=== PATIENT | female | born 1960 | race Caucasian/White ===

== ENCOUNTER 2023-12-12 09:04 | Emergency (ER) | payer OTHER, SELFPAY ==
[2023-12-12 09:14] VITALS: BP 114/72
[2023-12-12 09:40] VITALS: BMI 24.0
[2023-12-12 09:54] LABS: COVID-19 Antigen Negative (Negative)
[2023-12-12 10:08] VITALS: BP 118/68
--- NOTE | 2023-12-12 10:11 | ED.GENMED ---
History of Present Illness
General
Chief Complaint: Cold/Flu/URI Symptoms
Source: patient and family
Time Seen by Provider: 12/12/23 09:21
History of Present Illness
History of Present Illness:
63-year-old female with past medical history of multiple myeloma, follows with oncology at [facility], presenting to the emergency department for evaluation of a cough that is been ongoing for 3 months, unchanged today but with no specific
etiology found. Closer to the onset of the symptoms family brought the patient to urgent care who performed an x-ray and it was thought patient may have a pneumonia so she was treated with antibiotics and a cough medication. Couple of days the
cough was better but returned. Patient has no other new symptoms today but family does endorse some fatigue, mild shortness of breath and some decreased p.o. intake. No known sick contacts, recent travel or recent antibiotics. Daughter states
that they were told by the oncology services that patient's multiple myeloma is 'treatable but not curable'
Past History
Past History
ED Past Medical History: Cancer and NIDDM
ED Past Surgical History: None
Social History
Tobacco: Non-smoker
Alcohol: None
Drug: None
Personal: Other (Legally )
Living: with family
Review of Systems
Review of Systems
All Other Systems: ROS reviewed and negative except as documented in HPI and ROS
Phy Exam
Physical Exam
Physical Exam:
GENERAL: Alert , in no apparent distress, mild dry cough
EYE: conjunctiva clear
NECK: Supple
ENT: o/p clr, mmm.
CARDIAC: Regular rate and rhythm
LUNGS: Clear breath sounds bilaterally, no acute respiratory distress, no wheezes/rales/rhonchi
NEUROLOGICAL: Alert and oriented
SKIN: Warm and dry, skin intact.
MUSCULOSKELETAL: well perfused.
PSYCH: Normal and appropriate interaction.
Scores
Heart Failure Risk
Heart Failure Risk Score: Not Applicable
Heart Score for Chest Pain Patients
STEMI patient?: Not applicable
Withdrawal Assessment of Alcohol
Withdrawal Assessment Completed?: Not applicable
Course
Orders/Labs/Results
Orders:
Orders
12/12/23 09:34
COVID-19 Antigen Urgent
Source: Nasal Swab
Influenza A+B Rapid Molecular Urgent
SHIRLEY Source: Nasal Swab
Specimen Description:
12/12/23 09:51
CT Chest Pe Study Urgent
Comment:
Reason For Exam: SOB, cough, cancer history
12/12/23 10:05
Complete Blood Count/With Diff Urgent
Comprehensive Metabolic Panel Urgent
NT-proBNP Urgent
Abnormal Lab Results
12/12/23
10:05
RBC 2.88 L 10^6/uL
(4.20-5.40)
Hgb 9.6 L g/dL
(12.0-16.0)
Hct 27.6 L %
(37.0-47.0)
MCH 33.3 H pg
(27.0-31.0)
MPV 10.5 H fL
(7.4-10.4)
Abs Immat Gran (auto) 0.2 H 10^3/uL
(0-0.05)
Absolute Lymphs (auto) 0.8 L 10^3/uL
(1.2-3.4)
Immature Gran % 1.9 H %
(0-0.5)
Neutrophils % 76.2 H %
(42.2-75.2)
Lymphocytes % 10.1 L %
(20.5-51.1)
Sodium 134 L mmol/L
(135-145)
BUN 18 H mg/dl
(7-17)
Glucose 120 H mg/dl
(70-99)
Total Protein 5.6 L g/dl
(6.3-8.2)
12/12/23 10:05
12/12/23 10:05
Vital Signs
Initial and Last Documented VS:
Initial Vital Signs
Temp Pulse Resp BP Pulse Ox
99.1 F 103 18 114/72 97
12/12/23 09:14 12/12/23 09:14 12/12/23 09:14 12/12/23 09:14 12/12/23 09:14
Last Documented Vital Signs
Temp Pulse Resp BP Pulse Ox
99.1 F 84 16 98/54 100
12/12/23 09:14 12/12/23 11:36 12/12/23 11:36 12/12/23 11:36 12/12/23 11:36
MDM/Problems Addressed
Differential Diagnosis Includes:
Pulmonary embolism, bronchitis, less concern for an acute pneumonia or infectious etiology given duration of symptoms
MDM/Problems Addressed:
63-year-old female presenting to the emergency department for evaluation of cough x 3 months, cough unchanged today but family noting patient has had some increased fatigue, shortness of breath and diminished p.o. intake over the last couple of
weeks. Patient had chest x-ray at the beginning of symptoms which urgent care said was thought to be a pneumonia. Slight relief with the antibiotic and cough medication but symptoms returned. Given patient's history of multiple myeloma with
worsening cough will obtain a CT scan to rule out PE. Labs ordered. Patient is otherwise hemodynamically stable and in no acute respiratory distress.
*Radiology
Radiology exam reviewed: radiology read reviewed
*Pulse Oximetry
Patient hypoxic: no
*Critical Care Note
Total Time (30-74mins, 75-104mins- exclusive of procedures): Not Applicable
Patient Management
Escalation/DeEscalation of care consider admission/obs:
Patient CT scan noted for no acute pulmonary embolism. Findings are most suggestive of a possible infectious versus inflammatory etiology. Incidental findings also discussed with patient and [id number]. Printout of this CAT scan report was
provided. Will provide patient with prescription for prednisone and an inhaler. stable for discharge home and aware of return precautions.
ED Attending Note
-
Portions of this chart may have been created with voice recognition software.� Occasional wrong word or��sound alike� substitutions may have occurred due to the inherent limitations of voice recognition software.
Discharge Plan
Departure
Patient Disposition: Home (Routine Discharge)
Date of Disposition: 12/12/23
Time of Disposition: 11:46
Patient with high blood pressure during this ER visit?: No
Discharge Problem:
Bronchitis
Instructions: Chronic Bronchitis (DC)
Prescriptions:
New
prednisone 10 mg Tablet
See Rx Instructions .ROUTE .COMPLEX Qty: 30 0RF
Rx Instructions:
Take By Mouth:
40 mg daily x3 days, 30 mg daily x3 days,
20 mg daily x3 days, 10 mg daily x3 days.
albuterol sulfate 90 mcg/actuation HFA aerosol inhaler
2 puff inhalation QID PRN (Reason: shortness of breath or wheezing) Qty: 6.7 0RF
Referrals:
Tyson Hardy DO [Family Provider] -
Interventions
Interventions:
*Risk Screen - Suicide Last Done: 12/12/23 09:38
*General Assessment Last Done: 12/12/23 09:38
*Neglect/Abuse Screening Last Done: 12/12/23 09:38
ED- Fall Risk Assessment Last Done: 12/12/23 09:38
*ED COVID-19 Vaccine History Last Done: 12/12/23 09:38
*Nursing Disposition Last Done: 12/12/23 12:16
ED- Pulmonary Assessment Last Done: 12/12/23 09:40
Discharge Date and Time
Discharge Date/Time: 12/12/23 12:17
Print Language: KYRGYZ
[2023-12-12 10:27] LABS: % Basophils 0.4 % (0-2); % Eosinophils 3.6 % (0-6); % Immature Granulocytes 1.9 % (0-0.5); % Lymphocytes 10.1 % (20.5-51.1); % Monocytes 7.8 % (1.7-9.3); % Neutrophils 76.2 % (42.2-75.2); Absolute Eosinophils 0.3 10^3/uL (0-0.7); Absolute Immature Granulocytes 0.2 10^3/uL (0-0.05); Absolute Lymphocytes 0.8 10^3/uL (1.2-3.4); Absolute Monocytes 0.6 10^3/uL (0.1-0.6); Absolute Neutrophils 6.3 10^3/uL (1.4-6.5); Hematocrit 27.6 % (37.0-47.0); Hemoglobin 9.6 g/dL (12.0-16.0); Mean Corp Hgb Conc. 34.8 g/dL (33.0-37.0); Mean Corpuscular Hgb 33.3 pg (27.0-31.0); Mean Corpuscular Volume 95.8 fL (81.0-99.0); Mean Platelet Volume 10.5 fL (7.4-10.4); Nucleated Red Blood Cells % 0 %; Platelet Count 205 10^3/uL (130-400); Red Blood Cell Count 2.88 10^6/uL (4.20-5.40); Red Cell Dist. Width 14.4 % (11.5-14.5); White Blood Cell Count 8.2 10^3/uL (4.8-10.8)
[2023-12-12 10:35] LABS: ALT (SGPT) 26 U/L (0-35); AST (SGOT) 32 U/L (14-36); Albumin 3.6 g/dl (3.5-5.0); Alkaline Phosphatase 66 U/L (38-126); Blood Urea Nitrogen 18 mg/dl (7-17); Calcium 8.4 mg/dl (8.4-10.2); Carbon Dioxide 23 mmol/L (22-30); Chloride 104 mmol/L (98-107); Estimated Creatinine Clearance 55 ml/min; Glucose 120 mg/dl (70-99); Potassium 4.1 mmol/L (3.5-5.1); Sodium 134 mmol/L (135-145); Total Bilirubin 0.8 mg/dl (0.2-1.3); Total Protein 5.6 g/dl (6.3-8.2); eGFR > 60.00
[2023-12-12 10:44] LABS: NT-proBNP 178 pg/ml
[2023-12-12 11:36] VITALS: BP 98/54
== END 2023-12-12 12:17 | disposition home or self-care (01) ==
LOC: EMR 09:04
PROVIDERS: Physician Assistant Medical; EMERGENCY PHYSICIAN Emergency Medicine; FAMILY PHYSICIAN Family Medicine Adult Medicine
DX: J20.9 Acute bronchitis, unspecified (principal); R53.83 Other fatigue; Z11.52 Encounter for screening for COVID-19; C90.00 Multiple myeloma not having achieved remission; E11.9 Type 2 diabetes mellitus without complications
CPT/HCPCS: 99285; 71275; 80053; 83880; 85025; 87502; 87811; Q9967

== ENCOUNTER 2023-12-31 04:31 | Inpatient (IN) | payer OTHER, SELFPAY ==
[2023-12-31] VITALS (14 sets, daily range): BP systolic 78–155; BP diastolic 47–88; PULSE 110–117; O2SAT 93; BMI 24.4; BMI 23.0
[2023-12-31 00:46] LABS: % Basophils 0.3 % (0-2); % Eosinophils 3.1 % (0-6); % Immature Granulocytes 0.6 % (0-0.5); % Lymphocytes 29.2 % (20.5-51.1); % Monocytes 6.8 % (1.7-9.3); Absolute Eosinophils 0.3 10^3/uL (0-0.7); Absolute Immature Granulocytes 0.1 10^3/uL (0-0.05); Absolute Monocytes 0.7 10^3/uL (0.1-0.6); Absolute Neutrophils 6.1 10^3/uL (1.4-6.5); Hematocrit 24.7 % (37.0-47.0); Hemoglobin 8.6 g/dL (12.0-16.0); Mean Corp Hgb Conc. 34.8 g/dL (33.0-37.0); Mean Corpuscular Hgb 32.1 pg (27.0-31.0); Mean Corpuscular Volume 92.2 fL (81.0-99.0); Mean Platelet Volume 10.8 fL (7.4-10.4); Nucleated Red Blood Cells % 0 %; Platelet Count 236 10^3/uL (130-400); Red Blood Cell Count 2.68 10^6/uL (4.20-5.40); Red Cell Dist. Width 14.9 % (11.5-14.5); White Blood Cell Count 10.1 10^3/uL (4.8-10.8)
[2023-12-31] MEDS: TYLENOL 1000 MG PO (01:13)
[2023-12-31] MEDS: NSS 1000 IV ×3 (01:15→23:23)
[2023-12-31 01:23] LABS: COVID-19 Antigen Negative (Negative)
[2023-12-31 01:30] LABS: Lactic Acid 0.9 mmol/L (0.7-2.0)
[2023-12-31 01:39] LABS: ALT (SGPT) 22 U/L (0-35); AST (SGOT) 25 U/L (14-36); Albumin 3.4 g/dl (3.5-5.0); Alkaline Phosphatase 53 U/L (38-126); Blood Urea Nitrogen 20 mg/dl (7-17); Calcium 8.6 mg/dl (8.4-10.2); Carbon Dioxide 19 mmol/L (22-30); Chloride 105 mmol/L (98-107); Glucose 123 mg/dl (70-99); Potassium 4.1 mmol/L (3.5-5.1); Sodium 135 mmol/L (135-145); Total Protein 5.3 g/dl (6.3-8.2); eGFR > 60.00
--- NOTE | 2023-12-31 02:18 | ED.GENMED ---
History of Present Illness
General
Chief Complaint: Cough
Source: patient and family
Exam Limitations: none
Time Seen by Provider: 12/31/23 00:10
History of Present Illness
History of Present Illness:
63-year-old female presents with persistent cough. Tonight son states that she went to go to bathroom but could not stop coughing. She has a history of stem cell transplant. No hemoptysis. Cough has been mostly dry but persistent. She was
treated with some medications few weeks ago but cough has persisted. Arrives with a fever. At home felt chilled but did not know she had a fever.
Past History
Past History
ED Past Medical History: Cancer, NIDDM and Other (Multiple myeloma)
ED Past Surgical History: None
Social History
Tobacco: Non-smoker
Alcohol: None
Drug: None
Personal: Other (Legally )
Living: with family
Phy Exam
Physical Exam
Physical Exam:
CONSTITUTIONAL Patient alert and oriented to person, place and time. Well-appearing. Vital signs reviewed.
HEAD atraumatic, normocephalic.
EYES eyelids normal to inspection, Extraocular muscles intact, Conjunctiva normal, Sclera normal.
NECK normal range of motion, Trachea midline, no jugular venous distention.
RESPIRATORY CHEST No respiratory distress noted, Chest expansion equal, few scattered rhonchi
CARDIOVASCULAR regular and tachycardic, Heart sounds normal.
ABDOMEN abdomen nontender, Bowel sounds normal. No distention.
BACK normal inspection, no obvious deformities
UPPER EXTREMITY range of motion normal, Motor strength normal, no cyanosis, no edema.
LOWER EXTREMITY range of motion normal, Motor strength normal, no cyanosis, no edema.
NEURO Speech normal, No focal motor deficits, Emerson coma scale 15, Memory normal, Cranial Nerves intact to screening exam.
SKIN skin warm, dry, and normal in color.
PSYCHIATRIC patient oriented to person place and time, Normal affect.
Course
Orders/Labs/Results
Orders:
Orders
12/31/23 00:27
Complete Blood Count/With Diff Urgent
12/31/23 00:38
CR Chest - 2 Views Urgent
Comment:
Reason For Exam: cough, fever
12/31/23 00:55
COVID-19 Antigen Urgent
Source: Nasal Swab
Comprehensive Metabolic Panel Urgent
Comment: REDRAW
Lactic Acid Q4H
Comment: CANCEL 2nd LACTIC ACID IF 1st LACTIC ACID IS LESS THAN 2
Blood Culture Urgent
SHIRLEY Source: Blood/Venous
Specimen Description:
12/31/23 01:12
Acetaminophen [Tylenol] 1,000 mg .ROUTE .STK-MED ONE
12/31/23 01:13
Acetaminophen [Tylenol] 1,000 mg PO NOW STA
12/31/23 01:14
0.9% Sodium Chloride 1000 ml [Nss] 1,000 ml IV BOLUS
12/31/23 02:10
Add On - Microbiology Urgent
Tests Added?: Mycoplasma IgG and IgM
12/31/23 02:14
Bordetella Pertussis IgA,G,M [S] Urgent
12/31/23 02:16
Azithromycin 500 mg/250 ml [Zithromax Infusion] 500 mg in 250 ml IV NOW
CefTRIAXone [Rocephin] 1,000 mg IV NOW STA
Abnormal Lab Results
12/31/23 12/31/23
00:27 00:55
RBC 2.68 L 10^6/uL
(4.20-5.40)
Hgb 8.6 L g/dL
(12.0-16.0)
Hct 24.7 L %
(37.0-47.0)
MCH 32.1 H pg
(27.0-31.0)
RDW 14.9 H %
(11.5-14.5)
MPV 10.8 H fL
(7.4-10.4)
Abs Immat Gran (auto) 0.1 H 10^3/uL
(0-0.05)
Absolute Monos (auto) 0.7 H 10^3/uL
(0.1-0.6)
Immature Gran % 0.6 H %
(0-0.5)
Carbon Dioxide 19 L mmol/L
(22-30)
BUN 20 H mg/dl
(7-17)
Glucose 123 H mg/dl
(70-99)
Total Protein 5.3 L g/dl
(6.3-8.2)
Albumin 3.4 L g/dl
(3.5-5.0)
12/31/23 00:27
12/31/23 00:55
Vital Signs
Initial and Last Documented VS:
Initial Vital Signs
Temp Pulse Resp BP Pulse Ox
102.4 F H 128 19 128/78 91
12/31/23 00:00 12/31/23 00:00 12/31/23 00:00 12/31/23 00:00 12/31/23 00:00
Last Documented Vital Signs
Temp Pulse Resp BP Pulse Ox
102.4 F H 102 21 104/67 93
12/31/23 00:00 12/31/23 01:45 12/31/23 01:45 12/31/23 01:08 12/31/23 01:45
MDM/Problems Addressed
MDM/Problems Addressed:
Interstitial pneumonia, fever, hypoxia, sepsis
*Radiology
Radiology exam reviewed: preliminary read by ED provider (Interstitial and nodular infiltrates)
*Pulse Oximetry
Patient hypoxic: no
*Sheriff Interpretation
Rate: tachycardiac
Interpretation: abnormal
Rhythm: sinus
*Critical Care Note
Total Time (30-74mins, 75-104mins- exclusive of procedures): Not Applicable
Data Reviewed
Review of Other/Old Records Reveals: Testing (Previous CT reviewed)
Source: patient and family
Further Testing Considered But Not Given:
Consider CTA but patient recently had a CTA that was negative for PE
Patient Management
Discussion with other providers: Hospitalist
Escalation/DeEscalation of care consider admission/obs:
63-year-old female with history of stem cell transplant presents with persistent cough. Chest x-ray does reveal interstitial and nodular infiltrates. Now she has a fever. Question mycoplasma, pertussis or other infiltrative process. Cover with
antibiotics and in light of mild hypoxia admit
ED Attending Note
-
Portions of this chart may have been created with voice recognition software.� Occasional wrong word or��sound alike� substitutions may have occurred due to the inherent limitations of voice recognition software.
Discharge Plan
Departure
Patient Disposition: Admit
Date of Disposition: 12/31/23
Time of Disposition: 02:22
Admit to: Telemetry
Presentation/result/management discussed w/ accepting MD/DO: Hospitalist
Discharge Problem:
Acute interstitial pneumonia, Hypoxia
Prescriptions:
No Action
prednisone 10 mg Tablet
See Rx Instructions .ROUTE .COMPLEX Qty: 30 0RF
Rx Instructions:
Take By Mouth:
40 mg daily x3 days, 30 mg daily x3 days,
20 mg daily x3 days, 10 mg daily x3 days.
albuterol sulfate 90 mcg/actuation HFA aerosol inhaler
2 puff inhalation QID PRN (Reason: shortness of breath or wheezing) Qty: 6.7 0RF
Referrals:
Tyson Hardy DO [Family Provider] -
Interventions
Interventions:
*Risk Screen - Suicide Last Done: 12/31/23 00:00
*General Assessment Last Done: 12/31/23 00:00
*Neglect/Abuse Screening Last Done: 12/31/23 00:00
ED- Fall Risk Assessment Last Done: 12/31/23 02:08
*ED COVID-19 Vaccine History Last Done: 12/31/23 00:00
ED- Pulmonary Assessment Last Done: 12/31/23 00:41
Discharge Date and Time
Print Language: GREENLANDIC
[2023-12-31] MEDS: ROCEPHIN 1000 MG IV (02:23)
[2023-12-31] MEDS: ZITHROMAX INFUSION 250 IV (02:25)
--- NOTE | 2023-12-31 04:06 | HPS.HSE ---
Family Physician
-
Family Physician: Tyson Hardy
Chief Complaint
-
Cough / Fever
History of Present Illness
Patient is a 63y F with PMH significant for multiple myeloma who presents to ED complaining of cough and fever. History obtained from patient and her son at the beside. Patient was diagnosed with multiple myeloma within the past year. In
May 2023 she underwent autologous stem cell transplant at [facility]. She is currently maintained on prophylactic antivirals and receives a subcutaneous injection every month - though they cannot recall the name of this.
Patient has been having hacking paroxysms of cough for the past 2-4 months. She notes that cough is largely non-productive. No associated dyspnea, sore throat, fevers / chills, etc.
She was initially seen by her PCP and prescribed cough medications without relief.
She was seen at an Urgent Care and prescribed a course of abx without relief.
She was seen here in the ED on 12/[address] suggested infectious v inflammatory bronchiolitis. She was prescribed a prednisone taper which was minimally / briefly helpful.
For the past 2-3 days, patient has been complaining of chills / feeling cold at home. This evening, she had a particularly harsh paroxysm of cough which prompted family to bring her to the ED for evaluation.
She was noted to have fever here to 102.4.
Patient has had poor appetite and has been sleeping very poorly - largely due to nighttime coughing.
Medical History
Past Medical History
Past Medical History: Reports Other
Additional Past Medical History:
Multiple Myeloma
Dyslipidemia
Hearing Loss
Past Surgical History: Reports Other
Additional Past Surgical History:
Bilateral Ear Surgeries
Social History
Tobacco: Non-smoker
Alcohol: None
Drug: None
Family History
Family History: Not pertinent
Allergies / Home Medications
Allergies reflects when Allergies were last updated in [employer].
Home Medications with original date entered in [employer]
Allergy/Medication List:
Allergies
Allergy/AdvReac Type Severity Reaction Status Date / Time
No Known Allergies Allergy Unverified 12/31/23 00:00
Home Medications
acyclovir 400 mg tablet 400 mg PO BID 12/31/23
entecavir 0.5 mg tablet 0.5 mg PO DAILY 12/31/23
rosuvastatin 10 mg tablet 10 mg PO DAILY 12/31/23
ruxolitinib 10 mg tablet (Jakafi) 10 mg PO BID 12/31/23
Review of Systems
-
History Source: Patient and Family
A 12 point ROS was completed and negative except as noted: Yes
Constitutional: Reports Fever, Fatigue and Chills
EENT: Denies Sore Throat
Respiratory: Reports Cough; Denies Hemoptysis or Trouble Breathing
Cardiac: Denies Chest Pain, Diaphoresis or Palpitations
Abdomen/GI: Denies Abdominal Pain, Nausea, Vomiting or Diarrhea
: Denies Dysuria, Frequency or Flank Pain
Musculoskeletal: Denies Joint Pain or Edema
Neurological: Denies Dizzy or Headache
Psych: Denies Depression or Anxiety
Physical Exam
Vital Signs
Vital Signs
Temp Pulse Resp BP Pulse Ox
98.4 F 94 19 100/62 98
12/31/23 02:39 12/31/23 02:30 12/31/23 02:30 12/31/23 02:06 12/31/23 02:30
Physical Exam
General: Other (63y F in no acute distress.)
HEENT: Moist mucous membranes and PERRLA
Respiratory: Other (Very few / fine bibasilar rales. No wheezing / rhonchi. No cough during my exam.)
Cardiac: S1/S2 and Regular Rhythm; No Murmur
GI: Soft, Non Tender, Non Distended and Normal Bowel Sounds
Musculoskeletal: No Clubbing, No Cyanosis and No Edema
Neuro: AO x 3 and Nonfocal/grossly intact
Laboratory Results
-
12/31/23 00:27
12/31/23 00:55
Laboratory Results
Lactic Acid Cancelled 12/31/23 04:45
Total Bilirubin 1.0 mg/dl (0.2-1.3) 12/31/23 00:55
AST 25 U/L (14-36) 12/31/23 00:55
ALT 22 U/L (0-35) 12/31/23 00:55
Alkaline Phosphatase 53 U/L (38-126) 12/31/23 00:55
Impression/Plan
-
A/P: Patient is a 63y F with PMH significant for multiple myeloma s/p stem cell transplant who presents to ED for cough and is noted to have fever.
Bronchiolitis / Atypical Pneumonia
Immunocompromised State
- Admit for further evaluation and treatment.
- COVID negative in the ED.
- IV abx with ceftriaxone / azithromycin for now.
- Follow up culture data and adjust regimen as needed.
- ID evaluation for additional recommendations.
- Follow fever curve. Follow for any new / worsening symptoms.
Multiple Myeloma
Anemia secondary to the above
- Stable. s/p stem cell transplant in May at [facility].
- Continue current antiviral prophylaxis regimen.
- Follow cell counts for any changes.
- Will taper Jakafi dose to 5mg BID for now given fever / infection.
- Son states that they has intended / planned to begin tapering this [facility] in any event.
DVT Prophylaxis: Lovenox
Code Status: Full
--- NOTE | 2023-12-31 06:25 | PTCARENOTE ---
Received patient from ER. stable vitals . 94% on RA. c/o frequent dry non productive cough, waiting for pharmacy to verify meds. POC reviewed with patient.
[2023-12-31 07:09] LABS: Hematocrit 22.3 % (37.0-47.0); Hemoglobin 7.5 g/dL (12.0-16.0); Mean Corp Hgb Conc. 33.6 g/dL (33.0-37.0); Mean Corpuscular Hgb 31.3 pg (27.0-31.0); Mean Corpuscular Volume 92.9 fL (81.0-99.0); Red Cell Dist. Width 14.6 % (11.5-14.5); White Blood Cell Count 5.8 10^3/uL (4.8-10.8)
[2023-12-31 07:48] LABS: Mean Platelet Volume 10.2 fL (7.4-10.4); Platelet Count 176 10^3/uL (130-400)
[2023-12-31 07:50] LABS: Hepatitis C Antibody Negative (Negative)
[2023-12-31 07:53] LABS: ALT (SGPT) 19 U/L (0-35); AST (SGOT) 21 U/L (14-36); Alkaline Phosphatase 46 U/L (38-126); Blood Urea Nitrogen 16 mg/dl (7-17); Carbon Dioxide 17 mmol/L (22-30); Chloride 111 mmol/L (98-107); Direct Bilirubin 0.2 mg/dl (0.0-0.4); Estimated Creatinine Clearance 58 ml/min; Glucose 121 mg/dl (70-99); Sodium 141 mmol/L (135-145); Total Bilirubin 0.6 mg/dl (0.2-1.3); Total Protein 4.9 g/dl (6.3-8.2); eGFR > 60.00
--- NOTE | 2023-12-31 08:30 | PTOTSP ---
Speech Language Pathology
Pt seen for clinical bedside swallow evaluation. Pt denied any difficulty chewing or swallowing. P.O. trials of puree, regular solids, and thin liquids provided. Adequate mastication, bolus formation, and A-P transit noted with no oral residue.
No overt signs of aspiration.
Recommend:
(1) Regular solids/thin liquids
(2) General aspiration precautions
(3) Meds as tolerated
(4) CONSERVATION COORDINATOR to sign off. Please reconsult as indicated
[2023-12-31] MEDS: ZOVIRAX 400 MG PO ×2 (09:12→21:01)
[2023-12-31] MEDS: CRESTOR 10 MG PO (09:13)
[2023-12-31] MEDS: PROTONIX 40 MG PO (09:14)
[2023-12-31] MEDS: MUCINEX 600 MG PO ×2 (09:14→21:01)
[2023-12-31] MEDS: TYLENOL 650 MG PO ×3 (11:08→21:00)
[2023-12-31] MEDS: NON-FORMULARY ITEM 1 UNIT PO (12:00)
[2023-12-31] MEDS: NON-FORMULARY ITEM 2 MG PO (12:01)
--- NOTE | 2023-12-31 12:57 | CON.ID ---
Addendum entered and electronically signed by Nereida Alvarenga MD 12/31/23 14:29:
I personally performed a history and physical exam of the patient and discussed management with the resident. I reviewed the resident's note and agree with the documented findings and plan of care HPI/CC.
History obtained from the patient's son and review of outside [facility] records.� 63-year-old female originally from [facility] and has been to the [facility] since 2004 with history of multiple myeloma status post autologous stem cell transplant at
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
biopsies showed multinucleated cells without viral inclusion bodies.� During biopsy showed perivascular and interstitial mixed inflammatory cell infiltrate with many eosinophils.� Dermatology favored twigk-bgjfio-wgbn disease.� She was seen by
infectious disease who treated her with IV ganciclovir to August 20, 2023 and transition to letromivir until she was off high-dose steroid progressed versus host disease.� Patient also was placed on Jakafi for the GVHD with good response. �Patient
was on Bactrim Fridays for PJP prophylaxis.� However in the end of July, dermatology requested DC the Bactrim as it may have contributed to the rash.� Patient was then placed on atovaquone.
In the beginning of October, patient developed dry cough.� On November 01, respiratory viral panel was positive for rhinovirus.� Her cough was persistent.� November 18 chest x-ray showed lateral right middle lobe opacity.� She was placed on doxycycline for
sinusitis.� Patient without improvement.� She has received several courses of antibiotics and still with persistent dry cough.� Cough is nonproductive.� No shortness of breath.� Cough is intermittent lasting about 1 hour.� She presented to ER on
December 11.� CAT scan showed no PE, +scattered tiny bilateral subpleural tree-in-bud nodules throughout all lobes most prominent in the upper lobes bilaterally suggestive of low-grade infectious/inflammatory bronchiolitis throughout the lungs
bilaterally. �She was discharged on prednisone without improvement.� For the past 4 days patient has been subjective fever and chills.� She came to the hospital yesterday.� Temperature was 102.4.� Checks x-ray shows interstitial and nodular
opacities bilaterally. No pets. No travel. 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 No gardening. She stays home most of the time since transplant. She has young grandchildren without recent illness. No sweats. Has
chronic low back pain. No rash. No N/V/diarrhea. She continues to take acyclovir. She is currently not on Atovaquone. She and her son is unsure whether or not she should continue.
Exam:
No frontal or maxillary sinus tenderness. Oral: benign, no ulcers/lesions. Chest: clear. Cardiac RRR S1S2, Abd nontender, Extemity no edema
No spinal tenderness. No joint effusions/erythema. No rash.
A/P:
# Dry cough x 2 months. CXR: interstitial and nodular opacities. 12/12/[address] also abnormal.
# Fever
# Multiple myeloma s/p autologous stem cell transplant 05/2023 on monthly daratumumab. Acyclovir ppx
# Auto-GVHD, hx Rash/pancolitis/fever/eosinophilia s/p skin bx, colon bx. �on Jakafi. Has tapered off steroid.
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
# HbsAb + HbsAg - HbcAb +. On entecavir
- Differential dx is broad in immunocompromised host.
To consider CMV pneumonitis, Pneumocystis jiroveci (not on prophylaxis), Nocardia, fungal (less likely), auto-GVHD involving lungs, bronchiolitis obliterans.
- Recommend chest CT
- Check plasma CMV viral load
- Check 1,3 beta-glucan assay (not sensitive or specific test for PJP)
- Pulmonary consult. To consider bronchoscopy for diagnosis.
-Follow blood cx's
-DC ceftriaxone/azithromycin.
-Broaden abx to empiric cefepime.
-Continue Entecavir to prevent HBV reactivation.
Continue acyclovir prophylaxis.
-Consider transfer to [facility].
Case discussed with Dr. Leonel Wadsworth.
Original Note:
Consultation
-
Date/Time Consultation Requested: 12-31-23
Date/Time Consultation Performed: 12-31-23
Requesting Provider: Dr. Faulkner
Performing Provider: Dr. Alvarenga
Reason for Consultation: fever and suspected pneumonia
Chief Complaint / Past History
Chief Complaint
cough and fever
History of Present Illness
Sherrie Briseno, age 63, came to the emergency on 12-31-23 with 2-3 months of dry cough, fevers and chills. She underwent an autologous stem cell transplant in April 2023 for Multiple Myeloma. Had multiple admissions subsequently with diarrheal
symptoms. According to her son, she 'was treated for CMV and/or GVHD'. She is on acyclovir and entecavir prophylaxis. In the past, she was subsequently on atovaquone as well, which was stopped possibly in October. She is also taking ruxolitinib, and
gets once a month shot for her MM (they are not sure about the name of the medication).
She developed a cough 2-3 months ago which has continued to progress. It is dry and not associated with any other symptoms besides intermittent chills and fevers. Her coughing spells can last for 20-30 minutes at times, and are always
non-productive. No difficulty breathing of hypoxia. She has taken cough medications, an outpatient course of antibiotics, steroid taper from the ED, but has failed to respond and continues to get worse. She moved from [facility] to the in 2004, and
has no recent travels. She has not had sick contacts known to her. Her son does report that 'she had a viral infection after the transplant which usually happens to kids'.
Past History
Past Medical History: Other (Multiple myeloma, GVHD, Dyslipidemia, Hearing Loss)
Past Surgical History: None
Allergy History:
No Known Allergies Allergy (Unverified 12/31/23 00:00)
Medications Reviewed: Yes
Social History
Tobacco: Non-Smoker
Alcohol: None
Drug: None
Living: With Family
Employment: Not Employed
Family History
Family History: Not Pertinent
Review of Systems
Review of Systems
General: Fever and Chills
HEENT: Negative Lymphadenopathy
Cardiovascular: Negative Chest Pain or Palpitations
Respiratory: Cough; Negative Dyspnea
Gasteroenterology: Negative Weight Loss, Nausea or Vomiting
Genital / Urological: Negative Dysuria
Endocrine: Negative Weakness or Fatigue
Skin / Hair / Nails: Negative Rash
Neurological: Negative Headache
Vital Signs
Temp Pulse Resp BP Pulse Ox
97.5 F 76 17 106/58 98
12/31/23 07:52 12/31/23 07:52 12/31/23 07:52 12/31/23 07:52 12/31/23 11:10
Physical Exam
Physical Exam
Constitutional: No Acute Distress
Head: Normocephalic
Pharynx: Benign
Cardiovascular: Regular Rate and S1/S2
Pulmonary: Clear and Rales (bilateral; mild; diffuse)
Gastrointestinal: Soft, Non Tender and Non Distended
Extremities: Negative Edema, Clubbing or Cyanosis
Skin: Negative Warm or Dry
Neurological: Awake, Alert, Oriented and No Motor Deficits
Psychological: Calm
Lab / Diagnostic Study Results
12/31/23 06:24
12/31/23 06:24
Abs Immat Gran (auto) 0.1 10^3/uL (0-0.05) H 12/31/23 00:27
Absolute Neuts (auto) 6.1 10^3/uL (1.4-6.5) 12/31/23 00:27
Absolute Lymphs (auto) 3.0 10^3/uL (1.2-3.4) 12/31/23 00:27
Absolute Monos (auto) 0.7 10^3/uL (0.1-0.6) H 12/31/23 00:27
Absolute Basos (auto) 0.0 10^3/uL (0-0.2) 12/31/23 00:27
Immature Gran % 0.6 % (0-0.5) H 12/31/23 00:27
Neutrophils % 60.0 % (42.2-75.2) 12/31/23 00:27
Lymphocytes % 29.2 % (20.5-51.1) 12/31/23 00:27
Monocytes % 6.8 % (1.7-9.3) 12/31/23 00:27
Eosinophils % 3.1 % (0-6) 12/31/23 00:27
Basophils % 0.3 % (0-2) 12/31/23 00:27
Lactic Acid Cancelled 12/31/23 04:45
Microbiology Results
Micro:
12/31/23 00:55 Blood Culture - Pending
Blood/Venous
Assessment / Plan
Infectious vs. interstitial pneumonia
Immunocompromised state
GVHD
History of CMV
- Chronic and progressive; failed to respond to antibiotics outpatient.
- Differential remains broad; includes but is not limited to viral, fungal or atypical pneumonia, interstitial pneumonia or GVHD.
- Sputum culture and blood culture pending.
- Mycoplasma and bordetella serologies ordered from the ED pending.
- Discontinue azithromycin and ceftriaxone for now.
- Will check CMV quant considering past history of CMV and immunosuppression.
- Check funguitell and aspergullus assay.
- Pulmonology consultation and supportive care for now.
- Continue ruxolitinib, acyclovir and entecavir.
- Discussing the possibility of transfer to [facility] per primary team.
Conditions known prior to admission
Multiple myeloma
Anemia of chronic disease
GVHD
Hyperlipidemia
--- NOTE | 2023-12-31 13:53 | CM ---
Patient seen at bedside with son also present. Patient son stated that patient split her time with his brother and him. Patient brother lives in [place] and that home is a condo with one story living. Patient son Mariah states his home is a 2 story
home with patient staying on the first floor. Patient PCP is Dr. Hardy and they uses [facility] [address] [place]. Patient son stated that he plans for patient to return to his home and she has a walker, cane at home. Patient son indicated that
the family has been applying for home care but he was unable to confirm what agency they were applying to. Pending PT/OT and confirm level of care needs.
Plan; SNF vs home with VN; pending functional assessments.
--- NOTE | 2023-12-31 14:32 | CON.PUL ---
Consultation
Consultation Request
Date/Time Consultation Requested: 12/31/2023 - 131
Date/Time Consultation Performed: 12/31/2023 - 0
Requesting Provider: Dr. Wadsworth
Performing Provider: Dr. Ruelas
Reason for Consultation: Cough/post-transplant status
Medical History
-
Chief Complaint: Cough/weakness/chills
History of Present Illness:
63-year-old female non-smoker with a past medical history of multiple myeloma s/p stem cell transplant (05/2023), dyslipidemia and hearing loss who presents with cough, weakness and chills. Patient recently diagnosed with MM and underwent stem cell
transplant at [facility] in May 2023. She is maintained on prophylactic antivirals + Jakafi. She has been experiencing worsening cough over the last several months which has been mostly dry. No shortness of breath, fevers or chills.
She saw her PCP and was given cough medicine and then went to urgent care and given antibiotics but symptoms persisted. She was recently here in the ER on 12/12/2023 for the cough with CTA chest showing infectious/inflammatory bronchiolitis as there
was bilateral GGO that was seen. She was sent home on prednisone taper + albuterol MDI. Currently, in the ER she was febrile to 102.4 �F, tachycardic to 128 bpm, breathing at 19 breaths/min, BP 128/78 and saturating 91% on room air. Labs showed
normal WBC at 10.1, Hb 8.6, serum bicarbonate 19, and COVID antigen negative. CXR shows interstitial + nodular opacities with differential including septic emboli vs metastatic disease. She was given antibiotics in the ER with
ceftriaxone/Zithromax, Tylenol and IVF with 1 L NS 0.9%. Patient admitted to the hospitalist service and continued on IVF and antibiotics. Pulmonary service now consulted for additional management/recommendations.
When I saw the patient, her son Mariah was at bedside. All questions were answered. Patient currently on room air breathing company. She still has a dry cough but she overall feels okay. She says her cough is not as severe as it was prior to
admission. According to the patient and her son, she has had a dry cough for several months. Also fevers for few days. She was given antibiotics a few months ago at an urgent care center in mid-October, but her Sx have persisted and worsened. She
apparently has a history of CMV positive serology. She had rngtd-spjqdo-axut disease with diarrhea and dehydration and had to be hospitalized multiple times between May - July 2023 at [place]. Her oncologist Dr. Dumont. The patient
currently denies ZHOU, chest pain, abdominal pain, nausea, joint redness/swelling, difficulty swallowing, rash, diarrhea, fevers or chills.
PMHx: History of multiple myeloma s/p stem cell transplant, dyslipidemia, hearing loss
PSHx: Bilateral ear surgeries, autologous stem cell transplant (May 2023 � [facility])
Past Medical History
Past Medical History: Other (Above as per HPI)
Past Surgical History: Other (Above as per HPI)
Social History
Tobacco: Non-smoker
Alcohol: None
Drug: None
Family History
Family History: Reviewed & Not Pertinent
Allergies / Home Medications
Allergies
Allergy/AdvReac Type Severity Reaction Status Date / Time
No Known Allergies Allergy Unverified 12/31/23 00:00
Home Medications
�Medication �Instructions �Recorded �Confirmed �Last Taken �Type
acyclovir 400 mg tablet 400 mg PO BID Infection 12/31/23 12/31/23 Unknown History
entecavir 0.5 mg tablet 0.5 mg PO DAILY ANTIVIRAL 12/31/23 12/31/23 Unknown History
rosuvastatin 10 mg tablet 10 mg PO DAILY High Cholesterol 12/31/23 12/31/23 Unknown History
ruxolitinib 10 mg tablet (Jakafi) 10 mg PO BID MM 12/31/23 12/31/23 Unknown History
Review of Systems
-
History Source: Patient
All other systems: Negative unless noted
Vitals / Labs / Diagnostic Testing
Vital Signs
Temp Pulse Resp BP Pulse Ox
98.2 F 98 16 95/61 95
12/31/23 15:19 12/31/23 15:19 12/31/23 15:19 12/31/23 15:19 12/31/23 15:19
Lab Data
12/31/23 06:24
12/31/23 06:24
Diagnostic Testing:
Physical Exam
-
HEENT: Normocephalic and Anicteric
Cardiovascular: S1/S2 and Peripheral Edema (negative)
Respiratory: Wheeze (negative), Rales (Bilateral), Rhonchi (negative) and Non-Labored Respirations
GI: Soft, Non Distended, Non Tender and Normal Bowel Sounds
Neurology: AO x 3
Skin: Warm and Dry
General: Respiratory Distress (negative), Comfortable, Chills (negative) and Sweats (negative)
Assessment
-
Assessment: 63-year-old female non-smoker with a past medical history of multiple myeloma s/p stem cell transplant (05/2023), dyslipidemia and hearing loss who presents with cough, weakness and chills. Patient recently diagnosed with MM and
underwent stem cell transplant at [facility] in May 2023. She is maintained on prophylactic antivirals + Jakafi. She has been experiencing worsening cough over the last several months which has been mostly dry. No shortness of
breath, fevers or chills. She saw her PCP and was given cough medicine and then went to urgent care and given antibiotics but symptoms persisted. She was recently here in the ER on 12/12/2023 for the cough with CTA chest showing
infectious/inflammatory bronchiolitis as there was bilateral GGO that was seen. She was sent home on prednisone taper + albuterol MDI. Currently, in the ER she was febrile to 102.4 �F, tachycardic to 128 bpm, breathing at 19 breaths/min, BP 128/78
and saturating 91% on room air. Labs showed normal WBC at 10.1, Hb 8.6, serum bicarbonate 19, and COVID antigen negative. CXR shows interstitial + nodular opacities with differential including septic emboli vs metastatic disease. She was given
antibiotics in the ER with ceftriaxone/Zithromax, Tylenol and IVF with 1 L NS 0.9%. Patient admitted to the hospitalist service and continued on IVF and antibiotics. Pulmonary service now consulted for additional management/recommendations.
Chronic conditions DATA DESIGNER: History of multiple myeloma s/p stem cell transplant, dyslipidemia, hearing loss
Impression:
#Worsening subacute cough
#Abnormal CXR/CT chest with interstitial/nodular opacities + GGO - suspect an inflammatory pneumonitis given GGO seen on CT chest imaging (now worsened compared to prior CTA chest from 12/12/2023); other top differentials include opportunistic
pneumonia vs chronic GVHD; unlikely pulmonary edema given she is >30 days from stem-cell transplant
#Anemia
#Metabolic acidosis with normal anion gap
#Hx of MM s/p autologous-SCT (May 2023 at [facility])
#Immunocompromised state on prophylactic acyclovir
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
Plan:
- Although patient has normal WBC, considering her immunocompromise state with cough, fever/chills, continue empiric antibiotics at least until blood cultures have been negative for at least 48-72 hours and if she remains afebrile with stable WBC
then consider narrowing antibiotics
- Given her worsening GGO seen on on repeat CT chest from 12/30, an opportunistic infection and chronic iqlvn-bfljqq-rmlh disease are two top differentials
- Please check CMV serology, we should check respiratory viral panel, yjzj-P-nrvplb (although I do not suspect she has fungal pneumonia), sputum Cx with bacterial Cx, AFB and fungus Cx
- If she does not improve over next 1-2 days with Abx and blood work is non-revealing, then she should obtain bronchoscopy for opportunistic workup with silver stain to r/o PCP; cell count with diff and cytopathology
- Of note, cough is a possible adverse reaction for ruxolitinib (13% incidence; dyspnea has an 11-13% incidence, per up-to-date)
- Continue supportive care with anti-tussants and prn nebulized bronchodilators
- Maintain SpO2 >90-94% with supplemental O2 as needed
- Would avoid starting steroids until opportunistic infection has been ruled out, and she may need a bronchoscopy in order to do that
- Check autoimmune/CTD serologies including ALEXANDRA, CRP, ESR, RF, anti-CCP, scleroderma panel, SSA/SSB, Elizabeth-1 and anti-centromere
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 Mehnaz Dumont from [facility]
- Family is amenable to transfer to [facility] if that is what is needed, which may be best given her providers are there
- Recommend outpatient surveillance of her left adrenal mass and liver lesion seen on CT chest from 12/31/2023
- Incentive spirometer encouraged
- Replete electrolytes with K>4, Mg>2
- Maintain euglycemia with goal BG >100 and <180
- DVT ppx: LMWH
Pulmonary service will continue to follow along.
Data:
CXR 12/31/2023:
Interstitial and nodular opacities bilaterally favored to represent a diffuse infectious/inflammatory process. Given the presence of nodular opacities, septic emboli or metastatic disease cannot be excluded. Consider further evaluation with CT chest.
CT Chest 12/31/2023:
Diffuse increased interstitial and ground glass opacities throughout both lungs, increased compared to examination of December 12, 2023.
1 cm enhancing nodular lesion in the posterior and superior right lobe liver, not seen on previous examination, although previous examination was pulmonary embolism exam, having a different phase of enhancement.
2.3 cm left adrenal gland mass, not characterized on the basis of this examination.
Stable compression deformities in the lumbar and thoracic spine. Stable old fracture of the inferior body of the sternum.
Total time spent today was 75 minutes for this encounter. Time includes reviewing laboratory test/imaging results, reviewing pertinent medical records, obtaining and reviewing medical history, performing an appropriate exam, ordering medications,
tests and procedures. Time also includes documentation of this encounter, coordinating patient care and communicating with other healthcare professionals. Total time does not include separately billed tests performed on this date of service.
[2023-12-31] MEDS: MAXIPIME 2000 MG IV (15:09)
[2023-12-31] MEDS: STERILE WATER FOR INJECTION 10 ML IV (15:09)
[2023-12-31] MEDS: LOVENOX 40 MG SC (17:02)
--- NOTE | 2023-12-31 20:42 | W.PN.HOSP.TC ---
Addendum entered and electronically signed by Leonel Wadsworth MD 01/01/24 08:51:
I saw and evaluated the patient. I reviewed the resident�s note and agree with findings and plan as documented in the resident�s note.
Case discussed with ID/Pulmonology
Abx has been adjusted to cefepime.
Maintain on post transplant Jakafi (For GVHD), Entecavir (Hep B ppx) or acyclovir (HSV/Varicella/CMC prophylaxis).
ID sent serology for CMV/anti-glucan D/Aspergillus.
ER sent serology for mycoplasma/pertusiss
Pulmo evaluated and added vasculitis panel , considering bronchoscope if not improved.
CT chest w IV contrast ordered
Original Note:
Today's Communication/Plan
-
f/u with pulmonology
f/u with Infectious disease
complex case, consider a transfer to [facility]
Assessment / Plan
Assessment / Plan
#immunocompromised state:
- COVID 19 negative from test in the ED
- Temp was 102.4 then gradually reduced to 100.4
- xray (12/30) showed interstitial and nodular opacities B/L
- CT chest (12/30) showed increased interstitial and ground glass opacities in both lungs increased in comparison to december 11 ct chest
- pt is having troublesome cough
- blood culture pending
- Pt is started on cefepime.
- Continue acyclovir,entecavir, ruxolitinib
- ID consulted and examined patient
- Pulmonology consulted
- might need to consider a transfer to [facility]
Anticipated Discharge: 24 - 48 hours
Subjective/Interval History
-
Date of Service: December 31, 2023
pt is complaining of cough, especially worse in the nighttime.
Objective Data
-
Vital Signs:
Vital Signs
Temp Pulse Resp BP Pulse Ox
98.2 F 98 16 95/61 95
09/06/24 15:19 12/31/23 15:19 12/31/23 15:19 12/31/23 15:19 12/31/23 15:19
I&O
12/30/23 12/31/23 01/01/24
06:59 06:59 06:59
Intake Total 450 / 450
Balance 450 / 450
Review of Systems
-
History Source: Patient
Respiratory: Reports Cough
Physical Exam
-
General: Well Developed and Well Nourished
Respiratory: Clear to Auscultation
Cardiac: Regular Rhythm and S1/S2
GI: Soft, Nontender and Nondistended
Skin: Warm and Dry
Neuro: Awake, Alert and Oriented
Data Reviewed
-
Labs: Labs Reviewed by me and Discussed with Physician
[2023-12-31] MEDS: NON-FORMULARY ITEM 10 MG PO (21:02)
[2024-01-01] MEDS: MAXIPIME 2000 MG IV ×3 (00:51→16:27)
[2024-01-01] MEDS: STERILE WATER FOR INJECTION 10 ML IV ×3 (00:51→16:28)
[2024-01-01 06:00] VITALS: BMI 23.0
[2024-01-01 07:35] VITALS: BP 121/78
[2024-01-01 08:07] LABS: Blood Urea Nitrogen 12 mg/dl (7-17); Calcium 8.2 mg/dl (8.4-10.2); Carbon Dioxide 17 mmol/L (22-30); Chloride 105 mmol/L (98-107); Estimated Creatinine Clearance 49 ml/min; Glucose 129 mg/dl (70-99); Potassium 3.6 mmol/L (3.5-5.1); Sodium 136 mmol/L (135-145); eGFR > 60.00
[2024-01-01] MEDS: MUCINEX 600 MG PO (08:08)
[2024-01-01] MEDS: ZOVIRAX 400 MG PO ×2 (08:08→19:43)
[2024-01-01] MEDS: CRESTOR 10 MG PO (08:08)
[2024-01-01] MEDS: PROTONIX 40 MG PO (08:09)
[2024-01-01] MEDS: NON-FORMULARY ITEM 1 UNIT PO (08:10)
[2024-01-01] MEDS: TYLENOL 650 MG PO ×3 (08:21→19:43)
[2024-01-01] MEDS: PHENERGAN WITH CODEINE SYRUP 5 ML PO (08:21)
[2024-01-01 08:30] LABS: Erythrocyte Sed Rate 89 mm/hour (0-20)
[2024-01-01 08:31] LABS: Hematocrit 22.9 % (37.0-47.0); Hemoglobin 7.8 g/dL (12.0-16.0); Mean Corp Hgb Conc. 34.1 g/dL (33.0-37.0); Mean Corpuscular Hgb 31.3 pg (27.0-31.0); Mean Platelet Volume 10.7 fL (7.4-10.4); Platelet Count 187 10^3/uL (130-400); Red Blood Cell Count 2.49 10^6/uL (4.20-5.40); Red Cell Dist. Width 14.6 % (11.5-14.5); White Blood Cell Count 8.4 10^3/uL (4.8-10.8)
--- NOTE | 2024-01-01 09:03 | W.PN.UPDATE ---
Update Note
Progress Note Update
I saw and evaluated the patient. I reviewed the resident�s note and agree with findings and plan as documented in the resident�s note.
Patient is resting comfortably in bed. Continues to have persistent dry cough .
Having mild fever with Temp of 100.7 in night yesterday
No other abd/ complains
1. Subacute Cough
Inflammatory changes on lung parenchyma
r/o infection in immunocompromised patient
-Patient having dry cough for last 8 weeks or so. was in ER on 12/[address] chest showing minimal inflammatory changes on lungs. PE was ruled out. Patient was discharged on tapering course of prednisone 40mg x3days >30mg x3 days and so on,
-Patient finished course of steroids without any improvement in symptoms.
-Repeat CT chest with IV contrast report as above. Showing diffuse interstitial inflammatory changes with some ground-glass opacities
-COVID/Influenza screen negative. Would benefit with respiratory viral panel (Checks for Influenza/parainfluenza/rhino/RSV/adeno/hmPV) although not available at this point - Discussed with microbiology.
-Patient have h/o of CMV infection post BM transplant - repeat serological test ordered
-ER ordered for Bordetella Pertusiss and Mycoplasma serologies
-Pulmo evaluated and test sent for Vasculitis panel/anti-centromere ab-scleroderma ab/Hypersensitivity pneumonitis/RF/Sjogren/Anti Ro-La ab/pigeon serum IgG
-ID sent for Aspergillus Antigen and 1-3 [id number]-[id number] as well.
-Patient to be maintained off of steroids as will require possible bronchoscopy for further evaluation, will help r/o PJP infection and any other infectious path.
-Patient spiking fever, maintained on cefepime per ID recommendation
-Patient no significant improvement in pulmonary infiltrates after 12 days of steroid taper and CT scan showing worsening inflammatory changes makes it more likely this might be infection.
2. Allogenic BM transplant
-got allogenic BM transplant in May 2023 at [facility]
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
-Maintain on post transplant Jakafi (For GVHD), Entecavir (Hep B ppx) or acyclovir (HSV/Varicella/CMC prophylaxis).
-Hbg 7.8, continue monitoring
3. HLD
-continue rosuvastatin
DVT PPX - lovenox
Full code
Very complex case.
Total time spent : 60mins
--- NOTE | 2024-01-01 09:53 | W.PN.PUL3 ---
Today's Communication / Plan
-
Bronchoscopy this upcoming Wednesday
Supportive care
Anti-tussants
Sputum culture if patient can provide a decent sample
Follow-up connective tissue disease workup + CMV serology
Possible transfer to [place] depending on patient's wishes
Assessment
-
Assessment: 63-year-old female non-smoker with a past medical history of multiple myeloma s/p stem cell transplant (05/2023), dyslipidemia and hearing loss who presents with cough, weakness and chills. Patient recently diagnosed with MM and
underwent stem cell transplant at [facility] in May 2023. She is maintained on prophylactic antivirals + Jakafi. She has been experiencing worsening cough over the last several months which has been mostly dry. No shortness of
breath, fevers or chills. She saw her PCP and was given cough medicine and then went to urgent care and given antibiotics but symptoms persisted. She was recently here in the ER on 12/12/2023 for the cough with CTA chest showing
infectious/inflammatory bronchiolitis as there was bilateral GGO that was seen. She was sent home on prednisone taper + albuterol MDI. Currently, in the ER she was febrile to 102.4 �F, tachycardic to 128 bpm, breathing at 19 breaths/min, BP 128/78
and saturating 91% on room air. Labs showed normal WBC at 10.1, Hb 8.6, serum bicarbonate 19, and COVID antigen negative. CXR shows interstitial + nodular opacities with differential including septic emboli vs metastatic disease. She was given
antibiotics in the ER with ceftriaxone/Zithromax, Tylenol and IVF with 1 L NS 0.9%. Patient admitted to the hospitalist service and continued on IVF and antibiotics. Pulmonary service now consulted for additional management/recommendations.
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
Impression:
#Worsening subacute cough
#Abnormal CXR/CT chest with interstitial/nodular opacities + GGO - suspect an inflammatory pneumonitis given GGO seen on CT chest imaging (now worsened compared to prior CTA chest from 12/12/2023); other top differentials include opportunistic
pneumonia vs chronic GVHD; unlikely pulmonary edema given she is >30 days from stem-cell transplant
#Anemia
#Metabolic acidosis with normal anion gap
#Hx of MM s/p autologous-SCT (May 2023 at [place])
#Immunocompromised state on prophylactic acyclovir
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
Plan:
- Although patient has normal WBC, considering her immunocompromise state with cough, fever/chills, continue empiric antibiotics at least until blood cultures have been negative for at least 48-72 hours and if she remains afebrile with stable WBC
then consider narrowing antibiotics
- Given her worsening GGO seen on on repeat CT chest from 12/30, an opportunistic infection and chronic ravgh-kuaorw-sgea disease are two top differentials
- Please check CMV serology, we should check respiratory viral panel, [id number]-[id number] (although I do not suspect she has fungal pneumonia), sputum Cx with bacterial Cx, AFB and fungus Cx
- Planning for bronchoscopy this Wednesday or Wednesday for opportunistic workup with CMV testing, fungus Cx, AFB, respiratory Cx, silver stain to r/o PCP, cell count with diff and cytopathology
- Of note, cough is a possible adverse reaction for ruxolitinib (13% incidence; dyspnea has an 11-13% incidence, per up-to-date)
- Continue supportive care with anti-tussants and prn nebulized bronchodilators
- Maintain SpO2 >90-94% with supplemental O2 as needed
- Would avoid starting steroids until opportunistic infection has been ruled out, and she may need a bronchoscopy in order to do that
- Check autoimmune/CTD serologies including ALEXANDRA, ESR, RF, anti-CCP, scleroderma panel, SSA/SSB, Elizabeth-1 and anti-centromere
- CRP + ESR both highly elevated at 135 and 89, respectively
- Obtain medical records from patient's documentation writer/oncologist, Dr. Mehnaz Dumont from [place]
- Family is amenable to transfer to [place] if that is what is needed, which may be best given her providers are there
- Recommend outpatient surveillance of her left adrenal mass and liver lesion seen on CT chest from 12/31/2023
- Incentive spirometer encouraged
- Replete electrolytes with K>4, Mg>2
- Maintain euglycemia with goal BG >100 and <180
- DVT ppx: LMWH
Pulmonary service will continue to follow along.
Data:
CXR 12/31/2023:
Interstitial and nodular opacities bilaterally favored to represent a diffuse infectious/inflammatory process. Given the presence of nodular opacities, septic emboli or metastatic disease cannot be excluded. Consider further evaluation with CT chest.
CT Chest 12/31/2023:
Diffuse increased interstitial and ground glass opacities throughout both lungs, increased compared to examination of December 12, 2023.
1 cm enhancing nodular lesion in the posterior and superior right lobe liver, not seen on previous examination, although previous examination was pulmonary embolism exam, having a different phase of enhancement.
2.3 cm left adrenal gland mass, not characterized on the basis of this examination.
Stable compression deformities in the lumbar and thoracic spine. Stable old fracture of the inferior body of the sternum.
Total time spent today was 50 minutes for this encounter. Time includes reviewing laboratory test/imaging results, reviewing pertinent medical records, obtaining and reviewing medical history, performing an appropriate exam, ordering medications,
tests and procedures. Time also includes documentation of this encounter, coordinating patient care and communicating with other healthcare professionals. Total time does not include separately billed tests performed on this date of service.
Subjective Data
-
Date of Service:
Date of Service: January 01, 2024
Chief Complaint: Pulmonary Follow Up
Subjective:
Seen and evaluated today at bedside. Still has a dry cough. Currently on 2 L/min nasal cannula. I called her son at patient's bedside and answered all of his questions. Patient otherwise feels well, just feels fatigued. Denies chest pain, ZHOU,
abdominal pain, fevers or chills.
Review of Systems
General: Other (Negative unless mentioned above)
Objective Data
Data Reviewed
Vital Signs / I&O / Oxygen:
Vital Signs
Temp Pulse Resp BP Pulse Ox
100.7 F H 124 18 121/78 92
01/01/24 07:35 01/01/24 07:35 01/01/24 07:35 01/01/24 07:35 01/01/24 07:35
Intake and Output
12/31/23 01/01/24 01/02/24
06:59 06:59 06:59
Intake Total 450 / 450 1280 / 1280
Balance 450 / 450 1280 / 1280
SaO2 92
Physical Exam
General: Respiratory Distress (negative) and Comfortable
HEENT: Normocephalic and Anicteric
Cardiovascular: S1-S2, Peripheral Edema (negative) and Other (Tachycardic)
Respiratory: Wheeze (negative), Crackles (Bilateral), Rhonchi (negative) and Non-Labored Respirations
GI: Soft, Non Distended, Non Tender and Normal Bowel Sounds
Neurology: AO x 3 and Tremors (negative)
Skin: Warm, Dry, Cyanosis (negative) and Jaundice (negative)
Labs/Micro/Reports
Lab Data
01/01/24 07:13
01/01/24 07:12
Microbiology
12/31/23 00:55 Blood/Venous Blood Culture - Preliminary
No Growth in 24 hours- Final report to follow
[2024-01-01] MEDS: NON-FORMULARY ITEM PO ×2 (12:19→21:00)
[2024-01-01] MEDS: NSS 1000 IV (14:07)
[2024-01-01 15:30] VITALS: BP 82/74
[2024-01-01 15:45] VITALS: BP 98/55
--- NOTE | 2024-01-01 17:05 | W.PN.ID1 ---
Date of Service
Date of Service: January 01, 2024
Today's Communication
Continue current antibiotics
Assessment / Plan
Infectious vs. interstitial pneumonia
Immunocompromised state
GVHD
History of CMV
- Chronic and progressive; failed to respond to antibiotics outpatient.
- Differential remains broad; includes but is not limited to viral, fungal or atypical pneumonia, interstitial pneumonia or GVHD.
- Blood culture pending. Sputum culture ordered, but no sample sent/collected yet.
- Mycoplasma and bordetella serologies ordered from the ED pending.
- Discontinue azithromycin and ceftriaxone for now.
- Will check CMV quant considering past history of CMV and immunosuppression.
- Check funguitell and aspergullus assay : sent
- Pulmonology consultation and supportive care for now.
- Continue ruxolitinib, acyclovir and entecavir.
- May consider transfer to [facility].
Conditions known prior to admission
Multiple myeloma
Anemia of chronic disease
GVHD
Hyperlipidemia
Chief Complaint
-: Other (Cough)
Subjective / Review of Systems
Patient seen and examined. Notes ongoing cough.
Review of Systems: Fever
Vital Signs / Physical Exam
Vital Signs
Vital Signs
Temp Pulse Resp BP Pulse Ox
99.8 F 112 16 98/55 94
01/01/24 15:45 01/01/24 15:45 01/01/24 15:45 01/01/24 15:45 01/01/24 15:45
Physical Exam
Constitutional: No Acute Distress, Chronically Ill and Non-toxic
Cardiovascular: S1/S2; Negative S3/S4
Pulmonary: Coarse and Non Labored
Gastrointestinal: Soft, Non Tender and Non Distended
Neurological: Awake and Alert
Psychological: Calm
Objective Data
Lab Data
Lab Results
01/01/24 07:13
01/01/24 07:12
ESR 89 mm/hour (0-20) H 01/01/24 07:13
Estimated Creat Clear 49 ml/min 01/01/24 07:12
Lactic Acid Cancelled 12/31/23 04:45
Total Bilirubin 0.6 mg/dl (0.2-1.3) 12/31/23 06:24
AST 21 U/L (14-36) 12/31/23 06:24
ALT 19 U/L (0-35) 12/31/23 06:24
Alkaline Phosphatase 46 U/L (38-126) 12/31/23 06:24
C-Reactive Protein 135.40 mg/L (0.0-10.00) H 01/01/24 07:13
Most recent labs reviewed.
Micro Results:
12/31/23 00:55 Blood Culture - Preliminary
Blood/Venous No Growth in 24 hours- Final report to follow
--- NOTE | 2024-01-01 17:25 | W.PN.HOSP.TC ---
Today's Communication/Plan
-
f/u with both pulmonology and ID
monitor the patients vitals and labs
consider transfer to [facility] for specialized care
Assessment / Plan
Assessment / Plan
#immunocompromised state:
- COVID 19 negative from test in the ED
- Temp was 102.4 on 12/30 , reduced to 100.7 (12/31)
- xray (12/30) showed interstitial and nodular opacities B/L
- CT chest with iv (12/30) showed increased interstitial and ground glass opacities in both lungs increased in comparison to december 11 ct chest
- pt is still having troublesome cough (12/31)
- blood culture pending
- Pt is started on cefepime.
- Continue acyclovir,entecavir, ruxolitinib for prophylactic measures
- ID consulted and examined patient
- Pulmonology consulted
- Infectious disease consulted
- Mycoplasma, CMV, bordetella, aspergillus culture still pending
- might need to consider a transfer to [facility]
Anticipated Discharge: 24 - 48 hours
Subjective/Interval History
-
Date of Service: January 01, 2024
Patient is still complaining of a dry cough ( day).
Objective Data
-
Labs:
Laboratory Results
01/01/24 01/01/24
07:12 07:13
WBC 8.4
Hgb 7.8 L
Hct 22.9 L
Plt Count 187
Sodium 136
Potassium 3.6
Chloride 105
Carbon Dioxide 17 L
BUN 12
Creatinine 0.7
Glucose 129 H
Calcium 8.2 L
Vital Signs:
Vital Signs
Temp Pulse Resp BP Pulse Ox
99.8 F 112 16 98/55 94
01/01/24 15:45 01/01/24 15:45 01/01/24 15:45 01/01/24 15:45 01/01/24 15:45
I&O
12/31/23 01/01/24 01/02/24
06:59 06:59 06:59
Intake Total 450 / 450 2059
Balance 450 / 450 2059
Review of Systems
-
History Source: Patient
Respiratory: Reports Cough
Physical Exam
-
General: Appears Chronically Ill
Respiratory: Clear to Auscultation
Cardiac: Regular Rhythm and S1/S2
Skin: Warm and Dry
Neuro: Awake and Alert
Psych: Calm
Data Reviewed
-
Labs: Labs Reviewed by me and Discussed with Physician
[2024-01-01] MEDS: LOVENOX 40 MG SC (17:36)
--- NOTE | 2024-01-01 19:45 | PTCARENOTE ---
During walking rounds PCT altered RN to pts complaints of not feeling well. Pt was found in bed covered by many blankets but clearly in riogors. Pt aox3, explained that she was freezing and was worried about a fever. Temperature 101.5, Pt also found
to be tachypneic with a POX in 70's 80's on 2L O2NC and HR in 140's. Attempted to increase O2 with no resolution. Pt placed on a NRB, Tylenol administered, Rapid called. Pt transferred to IMU.
[2024-01-01 19:57] LABS: Glucose - Point of Care 190 mg/dl (70-99)
[2024-01-01 20:20] LABS: % Basophils 0.1 % (0-2); % Eosinophils 2.1 % (0-6); % Immature Granulocytes 0.4 % (0-0.5); % Lymphocytes 11.7 % (20.5-51.1); % Neutrophils 80.7 % (42.2-75.2); Absolute Eosinophils 0.3 10^3/uL (0-0.7); Absolute Immature Granulocytes 0.1 10^3/uL (0-0.05); Absolute Lymphocytes 1.6 10^3/uL (1.2-3.4); Absolute Monocytes 0.7 10^3/uL (0.1-0.6); Absolute Neutrophils 11.3 10^3/uL (1.4-6.5); Hematocrit 23.5 % (37.0-47.0); Mean Corpuscular Hgb 31.1 pg (27.0-31.0); Mean Corpuscular Volume 91.4 fL (81.0-99.0); Mean Platelet Volume 10.6 fL (7.4-10.4); Nucleated Red Blood Cells % 0 %; Platelet Count 203 10^3/uL (130-400); Red Blood Cell Count 2.57 10^6/uL (4.20-5.40); Red Cell Dist. Width 14.9 % (11.5-14.5)
[2024-01-01] MEDS: XOPENEX 1.25 MG INHALANT SOLUTION INH (20:20)
[2024-01-01 20:21] LABS: B.E. -9.4 mmol/L; O2 Saturation % 93.3 % (94-98); PCO2 19 mmHg (32-35); PO2 62 mmHg (83-108); pH 7.45 (7.35-7.45)
[2024-01-01 20:24] LABS: HCO3 13.2 mmol/L (21-28)
[2024-01-01 20:34] LABS: Lactic Acid 4.1 mmol/L (0.7-2.0)
[2024-01-01 20:35] LABS: AST (SGOT) 22 U/L (14-36); Albumin 3.2 g/dl (3.5-5.0); Alkaline Phosphatase 55 U/L (38-126); Blood Urea Nitrogen 13 mg/dl (7-17); Carbon Dioxide 10 mmol/L (22-30); Chloride 108 mmol/L (98-107); Estimated Creatinine Clearance 43 ml/min; Glucose 241 mg/dl (70-99); Potassium 3.7 mmol/L (3.5-5.1); Sodium 136 mmol/L (135-145); Total Bilirubin 0.9 mg/dl (0.2-1.3); Total Protein 5.1 g/dl (6.3-8.2); eGFR > 60.00
[2024-01-01 20:42] LABS: Troponin I < 0.012 ng/ml
[2024-01-01 20:51] LABS: ALT (SGPT) 19 U/L (0-35)
[2024-01-01] MEDS: NSS IV (20:59)
[2024-01-01] MEDS: SODIUM BICARBONATE 1150 MEQ IV (20:59)
[2024-01-01 21:00] VITALS: BMI 23.1
--- NOTE | 2024-01-01 21:00 | PTCARENOTE ---
Received patient at approximately 2100. Pt. awake, alert, and oriented. Denies pain/discomfort. Afebrile. Heart rhythm sinus tachycardia. Hypotensive, IV fluid bolus and maintenance Bicarb gtt ordered. Pulses palpable. Pt. arrived on NRB mask.
Tachypneic. Work of breathing is starting to slow down. Pt. has frequent cough, non-productive. PO diet is ordered, pt. noted to have poor appetite recently due to excessive cough. Pt. voids without issue. Skin as documented. Discussed plan of care.
Vital signs stable at this time.
[2024-01-01 21:01] VITALS: BP 89/51
[2024-01-01 21:03] VITALS: BP 91/59
[2024-01-01] MEDS: NSS 250 IV (21:03)
--- NOTE | 2024-01-01 21:50 | RR ---
A Rapid Response was called on this patient, please see Rapid Response form.
[2024-01-01 22:03] VITALS: BP 92/55
[2024-01-02] VITALS (20 sets, daily range): BP systolic 79–140; BP diastolic 52–82; PULSE 110–113
[2024-01-02] MEDS: MAXIPIME 2000 MG IV ×3 (00:06→15:04)
[2024-01-02] MEDS: STERILE WATER FOR INJECTION 10 ML IV ×3 (00:07→15:04)
--- NOTE | 2024-01-02 01:47 | W.PN.UPDATE ---
Update Note
Progress Note Update
Rapid Response - Patient hypoxic in 80s and tachypneic. Patient noted to be febrile early in the shift - given Tylenol. Developed hypoxia, tachypnea and tachycardia in 140s. RR called. ABG HCO2 13.2. Patient placed on NRB sPO2 96%, Rx Xopenex,
Bicarb gtt, 500 bolus. Patient transferred to IMU level of care. Notified son Yolis of transferring patient.
[2024-01-02] MEDS: TYLENOL 650 MG PO ×3 (02:21→15:03)
[2024-01-02 03:17] LABS: B.E. -4.6 mmol/L; HCO3 18.2 mmol/L (21-28); O2 Saturation % 93.6 % (94-98); PCO2 25 mmHg (32-35); PO2 63 mmHg (83-108); pH 7.47 (7.35-7.45)
[2024-01-02 03:39] LABS: INR 1.38; PT 16.8 Sec (11.4-14.6)
[2024-01-02 03:40] LABS: APTT 30.4 Sec (23.4-35.0)
[2024-01-02 03:41] LABS: COVID-19 Antigen Negative (Negative)
[2024-01-02 04:07] LABS: Lactic Acid 1.2 mmol/L (0.7-2.0)
[2024-01-02 04:17] LABS: Hematocrit 20.1 % (37.0-47.0); Hemoglobin 7.1 g/dL (12.0-16.0); Mean Corp Hgb Conc. 35.3 g/dL (33.0-37.0); Mean Corpuscular Hgb 31.6 pg (27.0-31.0); Mean Corpuscular Volume 89.3 fL (81.0-99.0); Platelet Count 149 10^3/uL (130-400); Red Blood Cell Count 2.25 10^6/uL (4.20-5.40); Red Cell Dist. Width 14.7 % (11.5-14.5); White Blood Cell Count 9.5 10^3/uL (4.8-10.8)
[2024-01-02 04:23] LABS: ALT (SGPT) 16 U/L (0-35); AST (SGOT) 19 U/L (14-36); Albumin 2.6 g/dl (3.5-5.0); Alkaline Phosphatase 48 U/L (38-126); Blood Urea Nitrogen 15 mg/dl (7-17); Calcium 7.4 mg/dl (8.4-10.2); Carbon Dioxide 17 mmol/L (22-30); Chloride 105 mmol/L (98-107); Estimated Creatinine Clearance 49 ml/min; Glucose 143 mg/dl (70-99); Potassium 3.2 mmol/L (3.5-5.1); Sodium 137 mmol/L (135-145); Total Bilirubin 0.7 mg/dl (0.2-1.3); Total Protein 4.5 g/dl (6.3-8.2); eGFR > 60.00
[2024-01-02 04:32] LABS: NT-proBNP 2030 pg/ml
--- NOTE | 2024-01-02 04:39 | PTCARENOTE ---
Assumed care of Pt ~ 0320; Pt recently given tylenol for temp of 101.4, diaphoresis and rigors; Rechecked after 1 hr - temp = 101.2, diaphoresis and rigors resolved. Pt continues with harsh non-prod cough; Denies pain. Maintained on highflow,
SpO2 ~ 99%; BP's remain soft ~ 90's/60's with HR 90-110's. Labs obtained. Will continue to monitor and assess.
[2024-01-02] MEDS: ROBITUSSIN AC 5 ML PO (07:39)
[2024-01-02] MEDS: ZOVIRAX 400 MG PO (07:39)
[2024-01-02] MEDS: CRESTOR 10 MG PO (07:39)
[2024-01-02] MEDS: PROTONIX 40 MG PO (07:39)
[2024-01-02] MEDS: NON-FORMULARY ITEM 1 UNIT PO (07:40)
[2024-01-02] MEDS: SODIUM BICARBONATE 1150 MEQ IV (07:43)
[2024-01-02] MEDS: NON-FORMULARY ITEM PO (07:51)
--- NOTE | 2024-01-02 08:35 | W.PN.UPDATE ---
Addendum entered and electronically signed by Leonel Wadsworth MD 01/03/24 07:27:
Delayed entry:
For service provided on 01/03/24
Patient remains at risk of getting intubated. clerk of scales reported there is no ACLS/BLS ambulance for the evning for patient to be transferred
Case discussed with case supervisor/administration and patient would be flown to [facility].
Addendum entered and electronically signed by Leonel Wadsworth MD 01/02/24 15:19:
Reported patient again hypoxic and required to be put on maximal high flow oxygen.
Patient was started on IV D5/bicarb last night for lactic acidosis, discontinued. Dose of IV Lasix 40 mg ordered with oral 40meq of K
Original Note:
Update Note
Progress Note Update
I saw and evaluated the patient. I reviewed the resident�s note and agree with findings and plan as documented in the resident�s note.
Patient had rapid response overnight with rapid worsening dyspnea. Patient noted to be hypoxic and required to be placed on high flow currently on 40 L through nasal cannula.
Repeat chest x-ray in the night showing worsening bilateral diffuse interstitial infiltrates.
1. Acute hypoxic respiratory failure
Subacute Cough
Inflammatory changes on lung parenchyma
r/o infection in immunocompromised patient
-Patient having dry cough for last 8 weeks or so. was in ER on 12/[address] chest showing minimal inflammatory changes on lungs. PE was ruled out. Patient was discharged on tapering course of prednisone 40mg x3days >30mg x3 days and so on,
-Patient finished course of steroids without any improvement in symptoms.
-Repeat CT chest with IV contrast report as above. Showing diffuse interstitial inflammatory changes with some ground-glass opacities
-COVID/Influenza screen negative. Would benefit with respiratory viral panel (Checks for Influenza/parainfluenza/rhino/RSV/adeno/hmPV) although not available at this point - Discussed with microbiology.
-Patient have h/o of CMV infection post BM transplant - repeat serological test ordered
-ER ordered for Bordetella Pertusiss and Mycoplasma serologies
-Pulmo evaluated and test sent for Vasculitis panel/anti-centromere ab-scleroderma ab/Hypersensitivity pneumonitis/RF/Sjogren/Anti Ro-La ab/pigeon serum IgG
-ID sent for Aspergillus Antigen and 1-3 [id number] as well.
-Patient to be maintained off of steroids as will require possible bronchoscopy for further evaluation, will help r/o PJP infection and any other infectious path.
-Patient spiking fever, maintained on cefepime per ID recommendation
-Overnight patient developed new hypoxic respiratory failure requiring high flow oxygen support. Patient remains febrile as well.
-Repeat chest x-ray overnight showing diffuse worsening bilateral infiltrates.
-Case discussed with ID/pulmonology and patient is planned to be transferred to [facility] ICU. Patient has been accepted by case supervisor Dr. Merritt Ross.
-Case discussed with patient primary manager gift Dr. Dumont - [phone]
2. Allogenic BM transplant
-got allogenic BM transplant in May 2023 at [facility]
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
-Maintain on post transplant Jakafi (For GVHD), Entecavir (Hep B ppx) or acyclovir (HSV/Varicella/CMC prophylaxis).
-Hbg 7.1 today, recheck ordered. avoiding un-necessary blood transfusion with h/o BM transplant and hypoxia.
3. HLD
-continue rosuvastatin
DVT PPX - lovenox
Full code
Care plan discussed with ID/Pulmonology
Patient at this point have worsening hypoxic respiratory failure/pulmonary changes which would require further evaluation at higher level center. Patient is accepted by [facility], pending bed availability.
Total critical care time 55 mins . Total critical care time documented does not include time spent on separately billed procedures or the services of residents, students, nurses or physician assistants. I personally saw and examined the patient. I
have reviewed all diagnostic interpretations and treatment plans as written. I was present for the rios portions of any procedures performed and the inclusive time noted in any critical care statement. Critical care time includes patient management
by me, time spent at the patients bedside, time to review lab and imaging results, discussing patient care, documentation in the medical record, and time spent with the family or caregiver.
[2024-01-02] MEDS: BENADRYL 25 MG PO (08:59)
--- NOTE | 2024-01-02 09:33 | PTCARENOTE ---
Pt rec'd from overnight caregiver RN, AOx3, sl depressed affect, upset with events of overnight. Emotional support provided. Pt was rec'd on hi flow, RT Hood weaning this am, currently at 50L/90% and pt is maintaining adequate sats of 94-98% at this time.
Assisted to use BSC for urine, did not desat. Frequent harsh non productive cough noted, PRN Guafenesin administered. After am med pass, pt c/o itchiness to her back. Mild, diffuse red rash noted. Pt stated this happened to her before in previous
hospital admission, son confirmed-she has had symptoms of CMV infection before, after her stem cell transplant, Dr. Wadsworth notified, orders for PRN Benadryl rec'd, and medication administered. Plan discussed with attending Dr. Wadsworth, the patient, and
her son, will transfer pt to [facility] emergently, ammunition supervisor informed this RN at 0900 that pt has been accepted, per Dr. Wadsworth, the accepting physician is Dr. Merritt Rojas (antique automobiles repairer) at [facility], awaiting bed assignment at this time. RT contacted to
attempt to continue weaning pt off high flow as ALS transport cannot take hi flow 02. Will cont to monitor. Pt in agreement, call lui in reach, son at bedside.
--- NOTE | 2024-01-02 10:10 | W.PN.PUL3 ---
Today's Communication / Plan
-
Bronchoscopy this upcoming Wednesday, otherwise if she gets intubated then I will perform at bedside
Trial of BiPAP/NIV with low threshold to intubate
Supportive care
Anti-tussants
Sputum culture if patient can provide a decent sample
Follow-up connective tissue disease workup + CMV serology
Awaiting transfer to [facility] pending bed availability
Assessment
-
Assessment: 63-year-old female non-smoker with a past medical history of multiple myeloma s/p stem cell transplant (05/2023), dyslipidemia and hearing loss who presents with cough, weakness and chills. Patient recently diagnosed with MM and
underwent stem cell transplant at [facility] in May 2023. She is maintained on prophylactic antivirals + Jakafi. She has been experiencing worsening cough over the last several months which has been mostly dry. No shortness of
breath, fevers or chills. She saw her PCP and was given cough medicine and then went to urgent care and given antibiotics but symptoms persisted. She was recently here in the ER on 12/12/2023 for the cough with CTA chest showing
infectious/inflammatory bronchiolitis as there was bilateral GGO that was seen. She was sent home on prednisone taper + albuterol MDI. Currently, in the ER she was febrile to 102.4 �F, tachycardic to 128 bpm, breathing at 19 breaths/min, BP 128/78
and saturating 91% on room air. Labs showed normal WBC at 10.1, Hb 8.6, serum bicarbonate 19, and COVID antigen negative. CXR shows interstitial + nodular opacities with differential including septic emboli vs metastatic disease. She was given
antibiotics in the ER with ceftriaxone/Zithromax, Tylenol and IVF with 1 L NS 0.9%. Patient admitted to the hospitalist service and continued on IVF and antibiotics. Pulmonary service now consulted for additional management/recommendations.
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
Impression:
#Worsening subacute cough
#Abnormal CXR/CT chest with interstitial/nodular opacities + GGO - suspect an inflammatory pneumonitis given GGO seen on CT chest imaging (now worsened compared to prior CTA chest from 12/12/2023); other top differentials include opportunistic
pneumonia vs chronic GVHD; unlikely pulmonary edema given she is >30 days from stem-cell transplant
#Anemia
#Metabolic acidosis with normal anion gap
#Hx of MM s/p autologous-SCT (May 2023 at [facility])
#Immunocompromised state on prophylactic acyclovir
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
Plan:
- Patient is now on high flow nasal cannula at 90% FiO2 with worsening hypoxia and severe interstitial changes on CXR - I fear she may be going into ARDS
- Low threshold to intubate
- Trial BiPAP and if no improvement then TRX to ICU for NIV prior to intubating
- Although patient has normal WBC, considering her immunocompromise state with cough, fever/chills, continue empiric antibiotics (cefepime)at least until blood cultures have been negative for at least 48-72 hours and if she remains afebrile with
stable WBC then consider narrowing antibiotics
- Given her worsening GGO seen on on repeat CT chest from 12/30, an opportunistic infection and chronic kwdyc-ybkupo-newb disease are two top differentials
- Please check CMV serology, we should check respiratory viral panel, urfa-V-qaiimb (although I do not suspect she has fungal pneumonia), sputum Cx with bacterial Cx, AFB and fungus Cx
- Planning for bronchoscopy this Wednesday or Wednesday for opportunistic workup with CMV testing, fungus Cx, AFB, respiratory Cx, silver stain to r/o PCP, cell count with diff and cytopathology
- Of note, cough is a possible adverse reaction for ruxolitinib (13% incidence; dyspnea has an 11-13% incidence, per up-to-date)
- Continue supportive care with anti-tussants and prn nebulized bronchodilators
- Maintain SpO2 >90-94% with supplemental O2 as needed
- Would avoid starting steroids until opportunistic infection has been ruled out, and she may need a bronchoscopy in order to do that
- If she ends up getting intubated then I will perform a bedside bronchoscopy to send off BAL
- Check autoimmune/CTD serologies including ALEXANDRA, ESR, RF, anti-CCP, scleroderma panel, SSA/SSB, Elizabeth-1 and anti-centromere
- CRP + ESR both highly elevated at 135 and 89, respectively
- Obtain medical records from patient's underground repairer/oncologist, Dr. Mehnaz Dumont from [facility]
- Patient is awaiting transfer to [facility] (that is where her providers are and where prior workup/management of her previous hospitalizations were located), but still unavailable.
- Recommend outpatient surveillance of her left adrenal mass and liver lesion seen on CT chest from 12/31/2023
- Incentive spirometer encouraged
- Replete electrolytes with K>4, Mg>2
- Maintain euglycemia with goal BG >100 and <180
- DVT ppx: LMWH
Client Project Coordinator/Pulmonary service will continue to follow along.
Data:
CXR 12/31/2023:
Interstitial and nodular opacities bilaterally favored to represent a diffuse infectious/inflammatory process. Given the presence of nodular opacities, septic emboli or metastatic disease cannot be excluded. Consider further evaluation with CT chest.
CT Chest 12/31/2023:
Diffuse increased interstitial and ground glass opacities throughout both lungs, increased compared to examination of December 12, 2023.
1 cm enhancing nodular lesion in the posterior and superior right lobe liver, not seen on previous examination, although previous examination was pulmonary embolism exam, having a different phase of enhancement.
2.3 cm left adrenal gland mass, not characterized on the basis of this examination.
Stable compression deformities in the lumbar and thoracic spine. Stable old fracture of the inferior body of the sternum.
Total time spent today was 75 minutes for this encounter. Time includes reviewing laboratory test/imaging results, reviewing pertinent medical records, obtaining and reviewing medical history, performing an appropriate exam, ordering medications,
tests and procedures. Time also includes documentation of this encounter, coordinating patient care and communicating with other healthcare professionals. Total time does not include separately billed tests performed on this date of service.
Subjective Data
-
Date of Service:
Date of Service: January 02, 2024
Chief Complaint: Pulmonary Follow Up
Subjective:
Patient had worsening hypoxia overnight with worsening bilateral interstitial opacities seen on CXR, transferred to IMU and now on high flow nasal cannula. She is currently on HFNC at 90% FiO2, labile saturations between 92-94%. She is still
coughing. I spoke to son at bedside and answered all of his questions. She is still pending bed availability at [facility] for transfer. She denies chest pain, ZHOU, abdominal pain, fevers or chills.
Review of Systems
General: Other (Negative unless mentioned above)
Objective Data
Data Reviewed
Vital Signs / I&O / Oxygen:
Vital Signs
Temp Pulse Resp BP Pulse Ox
98.5 F 116 32 98/64 94
01/02/24 15:05 01/02/24 15:52 01/02/24 11:00 01/02/24 15:52 01/02/24 12:06
Intake and Output
01/01/24 01/02/24 01/03/24
06:59 06:59 06:59
Intake Total 450 / 450 3990 / 3990 1140 / 1140
Balance 450 / 450 3990 / 3990 1140 / 1140
SaO2 94
Nasal Cannula flow liters per 30
minute
Physical Exam
General: Respiratory Distress (positive) and Comfortable
HEENT: Normocephalic and Anicteric
Cardiovascular: S1-S2, Peripheral Edema (negative) and Other (Tachycardic)
Respiratory: Wheeze (negative), Crackles (Bilateral), Rhonchi (negative), Accessory Resp Muscle Use and Other (Tachypneic)
GI: Soft, Non Distended, Non Tender and Normal Bowel Sounds
Neurology: AO x 3 and Tremors (negative)
Skin: Warm, Dry, Cyanosis (negative) and Jaundice (negative)
Labs/Micro/Reports
Lab Data
01/02/24 15:23
01/02/24 03:43
Laboratory Results
01/01/24 01/02/24 01/02/24
Unknown 03:04 03:12
PT 16.8 H
INR 1.38
APTT 30.4
pH 7.45 7.47 H
pCO2 19 L 25 L
pO2 62 L 63 L
HCO3 13.2 L* 18.2 L
O2 Delivery Level
Microbiology
01/02/24 03:04 Nasal Swab Influenza Types A & B (HUNG) - Final
Negative for Influenza A & B, NAAT
Negative results must be combined with clinical observations
and patient history.
Nucleic Acid Amplification test (NAAT)performed on the
[employer] platform.
12/31/23 00:55 Blood/Venous Blood Culture - Preliminary
No Growth in 48 hours- Final report to follow
--- NOTE | 2024-01-02 10:20 | PTCARENOTE ---
Pt remains tachypneic and tachycardic, flushed appearing, temp checked --101...Tylenol administered. Per Dr. Wadsworth/Dr. Ruelas, will try bipap at this time.
--- NOTE | 2024-01-02 10:41 | W.PN.ID1 ---
Date of Service
Date of Service: January 02, 2024
Today's Communication
Continue current antibiotics. Await transfer to [facility].
Assessment / Plan
Infectious vs. interstitial pneumonia
Immunocompromised state
Hx GVHD
History of CMV
- SOB chronic and progressive; failed to respond to antibiotics outpatient.
- Differential remains broad; includes, but is not limited to viral, fungal or atypical pneumonia, interstitial pneumonia or GVHD.
- Blood culture pending. Sputum culture ordered, but no sample sent/collected yet.
- Mycoplasma and Bordetella serologies ordered from the ED : pending.
- Checking CMV quant (sent) considering past history of CMV and immunosuppression. Discussed with son who reports that recent outpatient blood-work revealed 'elevated levels'. I asked him to see if he can get copies of these labs.
- Checking funguitell and aspergullus assay : sent
- Pulmonology consultation and supportive care for now.
- Continue ruxolitinib, acyclovir and entecavir.
- Patient has been accepted in transfer to [facility]. Awaiting bed availability.
Conditions known prior to admission
Multiple myeloma
Anemia of chronic disease
GVHD
Hyperlipidemia
����������������������������������������������������������
Chief Complaint
-: Other (Cough)
Subjective / Review of Systems
Patient seen and examined. Chart reviewed. Events overnight reviewed and noted. Patient with increasing hypoxemia. Now on high flow O2.
Vital Signs / Physical Exam
Vital Signs
Vital Signs
Temp Pulse Resp BP Pulse Ox
101 F H 110 35 114/70 91
01/02/24 10:37 01/02/24 09:46 01/02/24 09:46 01/02/24 09:46 01/02/24 10:00
Physical Exam
Constitutional: No Acute Distress, Chronically Ill and Non-toxic
Cardiovascular: S1/S2; Negative S3/S4
Pulmonary: Coarse and Other (Mildly labored on high flow O2.)
Gastrointestinal: Soft, Non Tender and Non Distended
Neurological: Awake and Alert
Psychological: Calm
Objective Data
Lab Data
Lab Results
01/02/24 03:43
01/02/24 03:43
ESR 89 mm/hour (0-20) H 01/01/24 07:13
PT 16.8 Sec (11.4-14.6) H 01/02/24 03:12
INR 1.38 01/02/24 03:12
APTT 30.4 Sec (23.4-35.0) 01/02/24 03:12
Estimated Creat Clear 49 ml/min 01/02/24 03:43
Lactic Acid 1.2 mmol/L (0.7-2.0) 01/02/24 03:43
Total Bilirubin 0.7 mg/dl (0.2-1.3) 01/02/24 03:43
AST 19 U/L (14-36) 01/02/24 03:43
ALT 16 U/L (0-35) 01/02/24 03:43
Alkaline Phosphatase 48 U/L (38-126) 01/02/24 03:43
C-Reactive Protein 135.40 mg/L (0.0-10.00) H 01/01/24 07:13
Most recent labs reviewed.
Micro Results:
01/02/24 03:04 Influenza Types A & B (HUNG) - Final
Nasal Swab Negative for Influenza A & B, NAAT
Negative results must be combined with clinical observations
and patient history.
Nucleic Acid Amplification test (NAAT)performed on the
[employer] platform.
01/02/24 03:05 Blood Culture - Pending
Blood/Venous
12/31/23 00:55 Blood Culture - Preliminary
Blood/Venous No Growth in 48 hours- Final report to follow
--- NOTE | 2024-01-02 10:51 | PTCARENOTE ---
Trialing bipap at this time per Dr. Ruelas. 03/30 with 15L placed, pt tolerating well. Goal of one hour to mimic transport. Sat 90%, RR 30s. Remains tachycardic in 1 teens. Pt indicating she feels 'ok.' 2 sons at bedside.
--- NOTE | 2024-01-02 11:15 | PTCARENOTE ---
Pt tolerating bipap, however air leak noted, sat dipping to mid 80s. RT contacted, will try smaller mask.
[2024-01-02 11:53] LABS: Mycoplasma pneumoniae-IgM 0.01 U/L (<=0.76)
--- NOTE | 2024-01-02 12:08 | PTCARENOTE ---
Pt did tolerate bipap for one hour 10 min, RT placed back onto hiflow at this time. sat 94%, RR 28.
--- NOTE | 2024-01-02 15:00 | W.PN.HOSP.TC ---
Today's Communication/Plan
-
continue to f/u with ID
work on stabilizing patient vitals so she is ready to transfer
pending transfer to [facility]
Assessment / Plan
Assessment / Plan
(01/01) Rapid response was performed
- last night events- oxygen level in 80s and tachypneic in 140s.ABG HCO2 13.2. Patient placed on NRB sPO2 96%, Rx Xopenex, Bicarb gtt, 500 bolus.
- now pulse is 115, respiratory rate is 32, oxygen saturation is 94% on hi flow oxygen, and temp is 101.6
- Biapap was tried for 1 hour then patient was placed on hiflow oxygen saturating at 94%, continue the hiflow oxygen and stabilize patient vitals before transfer
- Patient transferred to IMU Notified son Yolis.
- Pending [facility] transfer
#immunocompromised state:
- COVID 19 negative from test in the ED
- Temp was 102.4 on 12/30 , reduced to 100.7 (12/31)
- xray (12/30) showed interstitial and nodular opacities B/L
- CT chest with iv (12/30) showed increased interstitial and ground glass opacities in both lungs increased in comparison to december 11 ct chest
- pt is still having troublesome cough (12/31)
- blood culture pending
- Pt is started on cefepime.
- Continue acyclovir,entecavir, ruxolitinib for prophylactic measures
- PMH of GVHD, multiple myeloma
- ID consulted and examined patient
- Pulmonology consulted
- Infectious disease consulted
- Mycoplasma, CMV, bordetella, aspergillus culture still pending
- pending transfer to [facility]
Anticipated Discharge: 24 - 48 hours
Subjective/Interval History
-
Date of Service: January 02, 2024
Rapid response was performed. oxygen level in 80s and tachypneic in 140s.ABG HCO2 13.2. Patient placed on NRB sPO2 96%, Rx Xopenex, Bicarb gtt, 500 bolus.
Objective Data
-
Labs:
Laboratory Results
01/02/24 01/02/24 01/02/24
03:04 03:12 03:43
WBC 9.5
Hgb 7.1 L
Hct 20.1 L*
Plt Count 149 D
PT 16.8 H
INR 1.38
APTT 30.4
HCO3 18.2 L
Sodium 137
Potassium 3.2 L
Chloride 105
Carbon Dioxide 17 L
BUN 15
Creatinine 0.7
Glucose 143 H
Calcium 7.4 L
Total Bilirubin 0.7
AST 19
ALT 16
Alkaline Phosphatase 48
Vital Signs:
Vital Signs
Temp Pulse Resp BP Pulse Ox
101.6 F H 115 32 110/72 94
01/02/24 14:47 01/02/24 11:00 01/02/24 11:00 01/02/24 10:00 01/02/24 12:06
I&O
01/01/24 01/02/24 01/03/24
06:59 06:59 06:59
Intake Total 450 / 450 3990 / 3990 240 / 240
Balance 450 / 450 3990 / 3990 240 / 240
Review of Systems
-
History Source: Patient
Respiratory: Reports Trouble Breathing
Cardiac: Reports Orthopnea
Physical Exam
-
General: Respiratory Distress, Appears in Distress and Appears Chronically Ill
Respiratory: Crackles (b/l) and Accessory Resp Muscle Use
Cardiac: Tachycardic
GI: Soft and Nontender
Neuro: Awake and Oriented
Psych: Anxious
Data Reviewed
-
Labs: Labs Reviewed by me and Discussed with Physician
[2024-01-02 15:42] LABS: Hematocrit 24.6 % (37.0-47.0); Hemoglobin 8.5 g/dL (12.0-16.0); Mean Corp Hgb Conc. 34.6 g/dL (33.0-37.0); Mean Corpuscular Hgb 31.4 pg (27.0-31.0); Mean Corpuscular Volume 90.8 fL (81.0-99.0); Platelet Count 195 10^3/uL (130-400); Red Blood Cell Count 2.71 10^6/uL (4.20-5.40); White Blood Cell Count 15.6 10^3/uL (4.8-10.8)
[2024-01-02] MEDS: LASIX 40 MG IV (15:52)
--- NOTE | 2024-01-02 15:59 | PTCARENOTE ---
Pt continues to decompensate despite Hiflow, and Dr. Ruelas and Ananth notified, will place back on bipap and consider intubation if does not improve after an hour. Left fa PIV infiltrated with sterile water/bicarb gtt, removed, arm elevated. IVF
dc'd. VAT RN Carloz at bedside to assess. Per MD, will order PICC as pt may need intubation . Pt and family updated.
--- NOTE | 2024-01-02 16:46 | PTCARENOTE ---
Per discussion with Dr. Wadsworth and Suraj, ICU transfer orders rec'd. IV Lasix given, assisted pt to bedside commode to urinate and have 2nd BM. PICC line being placed at this time. Per Dr. Wadsworth, hold PO KCL until pt is intubated. Pt and sons
aware of pending transfer and intubation. Bipap 12/5 with 14L at this time, sat maintaining low 90s.
--- NOTE | 2024-01-02 17:16 | PTCARENOTE ---
PICC placed, awaiting CXR.
[2024-01-02] MEDS: LOVENOX 40 MG SC (17:40)
--- NOTE | 2024-01-02 18:15 | PTCARENOTE ---
Rec'd pt at approx 1750 from IMU. Pt AAOx3, follows commands, SHABAZZ. Monitor ST 100's. Lungs coarse/crackles throughout, slightly dim on right. Pox 79% on arrival when pt on HFNC. Pt placed on NIV 03/30/100%. Pox 99% at this time. +BS, abd soft/nt.
Explained to pt that getting OOB to [facility] would not be safe with her declining resp status and need to conserve energy, purewick applied. CHG bath performed.
--- NOTE | 2024-01-02 20:15 | PTCARENOTE ---
Addendum entered by Tory Hess RN 01/02/24 20:17:
Last BM today, purewick in place draining yellow urine. Rash on torso/back, PIV and DL PICC patent, WNL, capped. Report given to [place] nurse, transport picked up patient.
Original Note:
Received patient AAOx3, denying pain, following commands, family at bedside. Sinus tach 110s, BP 90s-100s/60s-70s, palpable radial and pedal pulses bilaterally. On NIV, 03/30, 100% saturating 97%. Lung sounds coarse throughout. Strong, nonproductive
occasional cough,
[2024-01-03 08:49] LABS: ANA, IgG Reflex to HEp-2 None Detected (None Detected)
[2024-01-03 11:08] LABS: CCP Antibody IgG/IgA 2 Units (0-19)
[2024-01-03 13:45] LABS: Rheumatoid Agglutinin Less Than 10 IU (<10 IU)
[2024-01-03 19:58] LABS: CMV Qnt NAAT Plasma Log IU/mL 2.93 log IU/mL; CMV Quant NAAT Plasma Interp Detected (Not Detected); CMV Quant by NAAT Plasma IU/mL 844 IU/mL
--- NOTE | 2024-01-03 20:59 | W.DCSUMMARY ---
Discharge Summary
Discharge Data
Date of Admission: 12/31/23
Date of Discharge: 01/03/24
-
Pending Results: Yes
Hospital Course
63-year-old female with a past medical history of multiple myeloma status post stem cell transplant (05/2023), dyslipidemia and hearing loss who presents with cough, weakness and chills. Recently had stem cell transplant at [facility] in
May 2023. She has had worsening dry cough over the last several months. COVID antigen negative. CXR shows interstitial + nodular opacities. She was given antibiotics in the ER with ceftriaxone/Zithromax, Tylenol and IVF with 1 L NS 0.9%.
Pulmonology and ID was also consulted. Over the course of hospital stay, her antibiotics from the ER was changed to cefepime. She was maintained on entecavir, acyclovir, and jafaki for antiviral/ opportunistic infection protection. ID sent serology
for cmv/aspergillus/mycoplasma/ pertussis. blood culture negative. Chest xrays taken on 12/31 and 01/01 show widespread ground glass/ interstitial opacities. on 12/31 night, Rapid response was performed. oxygen level in 80s and tachypneic in 140s, ABG
HCO2 13.2. Patient placed on NRB sPO2 96%, Rx Xopenex, Bicarb gtt, 500 bolus. Now on 01/01 pulse is 115, respiratory rate is 32, oxygen saturation is 94% on hi flow oxygen, and temp is 101.6. Biapap was tried for 1 hour then patient was placed on
hiflow oxygen saturating at 94%, continue the hiflow oxygen and stabilize patient vitals before transfer. Patient transferred to [facility] Notified son Yolis. From there she was transferred to [facility].
Discharge Plan
-
Patient Disposition: Acute Care Hospital
Discharge Orders:
Discharge Patient (As Directed); Ordered 01/02/24
Ordered By: Larisa Nino
Discharge Date and Time
Discharge Date/Time: 01/02/24 20:00
Print Language: [id number]
[2024-01-04 06:44] LABS: Centromere Antibody 0 AU/mL (0-40); Jo-1 Antibodies 0 AU/mL (0-40); SSA 52 (Ro)(ENA) Ab, IgG 0 AU/mL (0-40); SSA 60 (Ro)(ENA) Ab, IgG 0 AU/mL (0-40); SSB (La)(ENA) Ab, IgG 0 AU/mL (0-40); Scleroderma Antibody (Scl-70) 0 AU/mL (0-40)
[2024-01-04 15:15] LABS: Bordetella Pertussis Ab, IgG 0.38 IV (<=1.04); Bordetella Pertussis Ab, IgM 0.1 IV (<=1.1)
[2024-01-04 21:57] LABS: Myeloperoxidase Antibody 0 AU/mL (0-19); Serine Protease-3, IgG 0 AU/mL (0-19)
== END 2024-01-02 20:00 | disposition short-term general hospital (02) | DRG 196 ==
LOC: ICU 04:31
PROVIDERS: Internal Medicine; Nurse Practitioner Family; Nurse Practitioner Gerontology; ADMITTING PHYSICIAN Hospitalist; ATTENDING PHYSICIAN Hospitalist; CONSULT PHYSICIAN Internal Medicine Critical Care Medicine; EMERGENCY PHYSICIAN Emergency Medicine; FAMILY PHYSICIAN Family Medicine Adult Medicine; OTHER PHYSICIAN Internal Medicine Infectious Disease
PROC: 5A09357 Assistance with Respiratory Ventilation, Less than 24 Consecutive Hours, Continuous Positive Airway Pressure (ICD-10-PCS; 2024-01-02)
PROC: 02HV33Z Insertion of Infusion Device into Superior Vena Cava, Percutaneous Approach (ICD-10-PCS; 2024-01-02)
DX: J84.9 Interstitial pulmonary disease, unspecified (principal); J96.01 Acute respiratory failure with hypoxia; C90.00 Multiple myeloma not having achieved remission; D84.821 Immunodeficiency due to drugs; E87.20 Acidosis, unspecified; D89.811 Chronic graft-versus-host disease; T86.5 Complications of stem cell transplant; B25.9 Cytomegaloviral disease, unspecified; D63.0 Anemia in neoplastic disease; T45.1X5A Adverse effect of antineoplastic and immunosuppressive drugs, initial encounter; E11.9 Type 2 diabetes mellitus without complications; E78.5 Hyperlipidemia, unspecified; Z79.899 Other long term (current) drug therapy; Z11.52 Encounter for screening for COVID-19
CPT/HCPCS: 36600; 71045; 71046; 71260; 80048; 80053; 80076; 82805; 82962; 83516; 83605; 83880; 84484; 85025; 85027; 85610; 85652; 85730; 86038; 86140; 86200; 86235; 86331; 86430; 86606; 86615; 86738; 86803; 87040; 87497; 87502; 87811; 92610; 93005; 94640; 94660; 96361; 96365; 96375; 97163; 97166; 99285; Q9967

== ENCOUNTER → 2024-04-25 12:30 | Outpatient (REF) | payer MEDICARE, OTHER, SELFPAY | LOC: RAD 12:30 | PROVIDERS: ATTENDING PHYSICIAN Emergency Medicine; FAMILY PHYSICIAN Family Medicine Adult Medicine | DX: R05.1 Acute cough (principal) | CPT/HCPCS: 71046 ==

== ENCOUNTER 2024-06-28 19:23 | Emergency (ER) | payer MEDICARE, OTHER, SELFPAY ==
[2024-06-28 19:25] VITALS: BP 183/102
--- NOTE | 2024-06-28 20:19 | ED.GENMED ---
History of Present Illness
General
Chief Complaint: Cough
Source: patient and family
Exam Limitations: none
Time Seen by Provider: 06/28/24 19:40
Nursing documentation reviewed up to this point in time: agreed with
History of Present Illness
History of Present Illness:
Patient is a 64-year-old female history multiple myeloma status post stem cell transplant May 2023 at [facility] presents to the ER for cough. She has a cough of the past 2 weeks but worse over the past 3 days. She denies any fevers or shortness
of breath. Denies any chills.
Past History
Past History
ED Past Medical History: Cancer, NIDDM and Other (Multiple myeloma)
ED Past Surgical History: None
Social History
Tobacco: Non-smoker
Alcohol: None
Drug: None
Personal: Other (Legally )
Living: with family
Review of Systems
Review of Systems
Allergies reviewed?: Yes
All Other Systems: ROS reviewed and negative except as documented in HPI and ROS
Constitutional: Reports no symptoms; Denies fever, fatigue or chills
EENT: Reports no symptoms
Respiratory: Reports cough; Denies trouble breathing
Cardiac: Reports no symptoms
ABD/GI: Reports no symptoms
: Reports no symptoms
Musculoskeletal: Reports no symptoms
Skin: Reports no symptoms
Neurological: Reports no symptoms
Psychiatric: Reports no symptoms
Phy Exam
General Physical Exam
General Presentation: no apparent distress
General age: appears stated age
General Skin: warm and dry
General Mental: alert
General Hydration: appears well hydrated
Cardiovascular Exam
Cardiovascular Exam: regular rate/rhythm, no murmur and normal peripheral pulses
Pulmonary Exam
Pulmonary Exam: lungs clear and no respiratory distress
Neurological Exam
Neurological Exam: alert and oriented x3
Musculoskeletal Exam
Musculoskeletal Exam: full ROM
Skin Exam
Skin Exam: normal color and warm/dry
Psychiatric Exam
Psychiatric Exam: normal mood/affect
Course
Orders/Labs/Results
Orders:
Orders
06/28/24 20:28
Chest [CR Chest - 2 Views ] Urgent
Comment:
Reason For Exam: cough
06/28/24 20:56
COVID-19 Antigen Urgent
Source: Nasal Swab
Complete Blood Count/With Diff Urgent
Comprehensive Metabolic Panel Urgent
Influenza A+B Rapid Molecular Urgent
SHIRLEY Source: Nasal Swab
Specimen Description:
Abnormal Lab Results
06/28/24
20:56
RBC 2.65 L 10^6/uL
(4.20-5.40)
Hgb 9.1 L g/dL
(12.0-16.0)
Hct 26.4 L %
(37.0-47.0)
MCV 99.6 H fL
(81.0-99.0)
MCH 34.3 H pg
(27.0-31.0)
Abs Immat Gran (auto) 0.1 H 10^3/uL
(0-0.05)
Absolute Monos (auto) 0.9 H 10^3/uL
(0.1-0.6)
Immature Gran % 1.4 H %
(0-0.5)
Monocytes % 9.8 H %
(1.7-9.3)
Chloride 109 H mmol/L
(98-107)
Glucose 109 H mg/dl
(70-99)
06/28/24 20:56
06/28/24 20:56
Vital Signs
Initial and Last Documented VS:
Initial Vital Signs
Temp Pulse Resp BP Pulse Ox
98.3 F 81 16 183/102 99
06/28/24 19:25 06/28/24 19:25 06/28/24 19:25 06/28/24 19:25 06/28/24 19:25
Last Documented Vital Signs
Temp Pulse Resp BP Pulse Ox
98.3 F 76 16 146/73 97
06/28/24 19:25 06/28/24 21:00 06/28/24 21:00 06/28/24 21:00 06/28/24 21:10
Hair Cutter consulted with Physician
Hair Cutter consulted with physician?: Yes
Name of Physician Consulted: [facility]
MDM/Problems Addressed
Differential Diagnosis Includes:
not limited to: bronchitis; pneumonia, covid/influenza
MDM/Problems Addressed:
symptoms are consistent with bronchitis viral syndrome. Patient denies any fevers she has no shortness of breath; she has mild cough on exam however lungs are clear she is not hypoxic nontachycardic negative COVID-negative flu negative pneumonia
on x-ray.
White count is 8.7 hemoglobin stable at 9.1 and chemistries unremarkable
Discussed close outpatient follow-up family doctor and to return if any worsening of symptoms
Will DC with Tessalon Perlparv[facility]
*Critical Care Note
Total Time (30-74mins, 75-104mins- exclusive of procedures): Not Applicable
ED Attending Note
-
Portions of this chart may have been created with voice recognition software.� Occasional wrong word or��sound alike� substitutions may have occurred due to the inherent limitations of voice recognition software.
Discharge Plan
Departure
Patient Disposition: Home (Routine Discharge)
Date of Disposition: 06/28/24
Time of Disposition: 22:52
Patient with high blood pressure during this ER visit?: No
Condition: Fair
Covid-19: Not Applicable
Discharge Problem:
Cough
Instructions: Cough, Adult (DC), BLOOD PRESSURE
Prescriptions:
New
benzonatate 200 mg capsule
200 mg PO TID PRN (Reason: Cough) Qty: 10 0RF
No Action
entecavir 0.5 mg Tablet
0.5 mg PO DAILY
acyclovir 400 mg Tablet
400 mg PO BID
Jakafi 10 mg Tablet
10 mg PO BID
rosuvastatin 10 mg Tablet
10 mg PO DAILY
calcium carbonate-vitamin D3 [Calcium + D] 600 mg-5 mcg (200 unit) Tablet
1 tab PO DAILY
Referrals:
Tyson Hardy DO [Family Provider] -
Activity Restrictions/Additional Instructions:
As discussed be sure to stay well-hydrated get plenty of rest. A prescription for cough medicine was sent to pharmacy take as directed.
Follow-up with family doctor in the next several days and return if any worsening of symptoms
Interventions
Interventions:
*Risk Screen - Suicide Last Done: 06/28/24 19:25
*General Assessment Last Done: 06/28/24 19:25
*Neglect/Abuse Screening Last Done: 06/28/24 19:25
*ED COVID-19 Vaccine History Last Done: 06/28/24 19:25
ED- Pulmonary Assessment Last Done: 06/28/24 21:10
Discharge Date and Time
Print Language: GREENLANDIC
[2024-06-28 21:00] VITALS: BP 146/73
[2024-06-28 21:02] LABS: % Basophils 0.3 % (0-2); % Eosinophils 2.8 % (0-6); % Immature Granulocytes 1.4 % (0-0.5); % Lymphocytes 27.8 % (20.5-51.1); % Monocytes 9.8 % (1.7-9.3); % Neutrophils 57.9 % (42.2-75.2); Absolute Eosinophils 0.2 10^3/uL (0-0.7); Absolute Immature Granulocytes 0.1 10^3/uL (0-0.05); Absolute Lymphocytes 2.4 10^3/uL (1.2-3.4); Absolute Monocytes 0.9 10^3/uL (0.1-0.6); Hematocrit 26.4 % (37.0-47.0); Hemoglobin 9.1 g/dL (12.0-16.0); Mean Corp Hgb Conc. 34.5 g/dL (33.0-37.0); Mean Corpuscular Hgb 34.3 pg (27.0-31.0); Mean Corpuscular Volume 99.6 fL (81.0-99.0); Nucleated Red Blood Cells % 0 %; Platelet Count 287 10^3/uL (130-400); Red Blood Cell Count 2.65 10^6/uL (4.20-5.40); Red Cell Dist. Width 12.5 % (11.5-14.5); White Blood Cell Count 8.7 10^3/uL (4.8-10.8)
[2024-06-28 21:24] LABS: ALT (SGPT) 18 U/L (0-35); AST (SGOT) 25 U/L (14-36); Albumin 3.6 g/dl (3.5-5.0); Alkaline Phosphatase 68 U/L (38-126); Blood Urea Nitrogen 15 mg/dl (7-17); Carbon Dioxide 22 mmol/L (22-30); Chloride 109 mmol/L (98-107); Glucose 109 mg/dl (70-99); Potassium 3.7 mmol/L (3.5-5.1); Sodium 137 mmol/L (135-145); Total Bilirubin 0.4 mg/dl (0.2-1.3); Total Protein 6.7 g/dl (6.3-8.2); eGFR > 60.00
[2024-06-28 21:26] LABS: COVID-19 Antigen Negative (Negative)
[2024-06-28 23:10] VITALS: BP 148/90
[2024-06-28] MEDS: TESSALON PERLES 200 MG PO (23:12)
== END 2024-06-28 23:32 | disposition home or self-care (01) ==
LOC: EMR 19:23
PROVIDERS: Nurse Practitioner; EMERGENCY PHYSICIAN Emergency Medicine; FAMILY PHYSICIAN Family Medicine Adult Medicine
DX: R05.9 Cough, unspecified (principal); Z11.52 Encounter for screening for COVID-19; C90.00 Multiple myeloma not having achieved remission; E11.9 Type 2 diabetes mellitus without complications; Z94.84 Stem cells transplant status
CPT/HCPCS: 99284; 71046; 80053; 85025; 87502; 87811

== ENCOUNTER 2024-11-27 17:53 | Emergency (ER) | payer OTHER, SELFPAY ==
[2024-11-27 17:55] VITALS: BP 122/80
[2024-11-27 18:18] LABS: Hematocrit 37.0 % (37.0-47.0); Hemoglobin 12.2 g/dL (12.0-16.0); Mean Corp Hgb Conc. 33.0 g/dL (33.0-37.0); Mean Corpuscular Volume 89.8 fL (81.0-99.0); Nucleated Red Blood Cells % 0 %; Platelet Count 338 10^3/uL (130-400); Red Cell Dist. Width 13.2 % (11.5-14.5)
[2024-11-27 18:32] LABS: ALT (SGPT) 22 U/L (0-35); AST (SGOT) 29 U/L (14-36); Albumin 5.1 g/dl (3.5-5.0); Alkaline Phosphatase 81 U/L (38-126); Blood Urea Nitrogen 21 mg/dl (7-17); Calcium 9.8 mg/dl (8.4-10.2); Carbon Dioxide 20 mmol/L (22-30); Chloride 109 mmol/L (98-107); Glucose 190 mg/dl (70-99); Lipase 314 U/L (23-300); Potassium 4.0 mmol/L (3.5-5.1); Sodium 140 mmol/L (135-145); Total Protein 8.6 g/dl (6.3-8.2); eGFR > 60.00
== END 2024-11-27 21:23 | disposition left against medical advice (07) ==
LOC: EMR 17:53
PROVIDERS: EMERGENCY PHYSICIAN Student in an Organized Health Care Education/Training Program
DX: R10.9 Unspecified abdominal pain (principal); Z53.21 Procedure and treatment not carried out due to patient leaving prior to being seen by health care provider
CPT/HCPCS: 80053; 83690; 85025